=== PATIENT | female | born 1985 | race Caucasian/White ===

== ENCOUNTER 2017-09-16 00:39 | Inpatient (IN) ==
[2017-09-16] MEDS ORDERED: Naloxone 0.4 MG/ML INJ IVP PRN (03:56)
[2017-09-16] MEDS ORDERED: Ondansetron 4 MG/2 ML VIAL IVP PRN (03:57)
--- NOTE | 2017-09-16 04:02 | Internal Med History&Physical ---
Date of Encounter: 09/16/17 Time of Encounter: 04:00 Internal Medicine - H&P: HPI Chief complaint: Abdominal pain Admitted From: Direct Admit Plans for Post Hospital Care: Home History of present illness: Ms. Garcia is a 32 year old female transferred from [facility] with abdominal pain and found to have elevated LFTs. Pain has been generalized but greater in the RUQ and progressed for a week. Reports occasional nausea and vomiting. Some chills but no measured fever. Pain is worse with eating. She has not had much PO intake for a couple days trying to avoid the pain and today her mother made dinner and she had mashed potatoes and started having pain right away and went to the ED at [facility] and then sent here. When I evaluated the patient, she was actually pain free and was nontender one examination. Denies headache, blurry vision, chest pain, shortness of breath, diarrhea, constipation, urinary symptoms, or neurological symptoms. Labs at [facility] showed WBC 8.3, hgb 14.8, Plt 343, Na 134, K 3.3, BUN 5, Cr .75 , Alk phos 272, AST 191, ALT 46, total bili 9.4, CRP 4.4, normal lactic acid, normal lipase. UA was cloudy urine with large bilirubin and large euk esterase. CT abdomen pelvis showed multiple gallstones but no distention, wall thickening, or pericholecystic fluid/inflammation to suggest acute cholecystitis. Proximal CBD dilated up to 1.6 cm. A calcified stone could not be clearly identified within the CBD. Past Med Surg Social Fam HX - Past Medical History Psychiatric history: no psych history - Social History Smoking Status: Never smoker Smokeless Tobacco Status: No Alcohol use: none Drug use: none Internal Medicine - H&P: Meds 3 Allergy/AdvReac Type Severity Reaction Status Date / Time No Known Allergies Allergy Verified 09/16/17 03:35 All Systems PM: A 10-system review of systems was performed and is negative for pertinent findings except as documented above in the HPI. Review of systems: All systems reviewed are negative except for as mentioned above - Constitutional Exam: GEN: NAD HEENT: AT, NC, No cyanosis, oral mucosa is moist, No JVD Lymphatics: No lymphadenoapthy Eyes: Extrocular muscles intact, anicteric CVS:RRR. S1, S2, No m/r/g RESP: CTAB ABD: Soft, NT, obese,. ND, +BS EXT: No edema, No rashes, 2+ DP NEURO: Nonfocal, CN II-XII intact, No focal motor or sensory deficits Psych: Cooperative, Not anxious or depressed - Assessment and plan (1) Abdominal pain Current Visit: Yes Status: Acute Assessment and plan: Likely from choledocholithiasis vs gallstone cholecystitis. We will admit the patient in consult surgery. There is a mention of possible CBD dilation. We will check an MRCP. Patient may need GI consult for ERCP. We will put the patient on Zosyn empirically. Continue pain control. Seems to be controlled with NSAIDs or tylenol. Continue IV fluids. Antiemetics. Nothing by mouth. Qualifiers: Abdominal location: right upper quadrant Qualified Code(s): R10.11 - Right upper quadrant pain (2) Transaminitis Current Visit: Yes Status: Acute Assessment and plan: Plan as above. (3) DVT prophylaxis Current Visit: Yes Status: Acute Assessment and plan: Heparin subcutaneous - Time Spent With Patient Total time spent is greater than 50% in coordination of care (as documented) at patient's floor/unit and/or counseling patient:
[2017-09-16 05:09] LABS: Basophils % 0.2 %; Eosinophils % 0.1 %; Hematocrit 40.5 % (35.3-44.9); Hemoglobin 13.9 g/dL (11.5-15.4); Immature Granulocytes % 0.3 % (0-4); Lymphocytes # 1.2 K/mcL (0.6-4.6); Lymphocytes % 11.7 %; Mean Corpuscular HGB Conc 34.3 g/dL (31.6-35.5); Mean Corpuscular Hemoglobin 29.2 pg (28.0-33.3); Mean Corpuscular Volume 85.1 fL (83.0-100.0); Mean Platelet Volume 9.2 fL (9.4-12.4); Monocytes # 0.5 K/mcL (0.0-1.3); Monocytes % 5.5 %; Neutrophils # 8.1 K/mcL (1.6-8.9); Platelet Count 309 K/mcL (140-400); Red Blood Count 4.76 M/mcL (3.82-4.97); Red Cell Distribution Width 14.9 % (11.5-14.5); Segmented Neutrophils % 82.2 %
[2017-09-16 05:14] LABS: INR 1.2; Prothrombin Time 13.2 Seconds (9.4-12.1)
[2017-09-16 05:31] LABS: Alanine Aminotransferase 413 Units/L (7-52); Albumin 3.7 g/dL (3.5-5.7); Albumin/Globulin Ratio 0.9 (1.1-2.2); Alkaline Phosphatase 287 Units/L (34-104); Aspartate Amino Transferase 149 Units/L (13-39); BUN/Creatinine Ratio 9 (6-26); Bilirubin,Total 8.5 mg/dL (0.3-1.0); Blood Urea Nitrogen 6 mg/dL (6-20); Calcium 9.4 mg/dL (8.6-10.3); Carbon Dioxide 20 mEq/L (23-29); Chloride 103 mEq/L (98-107); Globulin 4.1 g/dL (2.4-3.5); Glucose 114 mg/dL (70-105); Osmolality,Calculated 278 (280-300); Potassium 3.7 mEq/L (3.5-5.1); Sodium 135 mEq/L (136-145); Total Protein 7.8 g/dL (6.4-8.9); eGFR For African Americans > 60 (> 60); eGFR For Non-African Americans > 60 (> 60)
[2017-09-16] MEDS: 0.9 % Sodium Chloride 1,000 ML IVC SCH ×2 (05:46→17:53)
[2017-09-16] MEDS: *HR* Heparin 5,000 UNIT/ML VIAL SQ SCH ×3 (07:02→21:09)
[2017-09-16] MEDS: Piperacillin/Tazobactam 3.375 GM in 0.9 % Sodium Chloride Mini Bag 100 ML IVPB SCH ×2 (10:40→17:53)
--- NOTE | 2017-09-16 10:43 | General Surgery Consult Note ---
<Nick Goodwin - Last Filed: 09/16/17 13:04> Date of Encounter: 09/16/17 Time of Encounter: 08:30 Assessment and Plan (1) Cholelithiases Current Visit: Yes Status: Acute Pt with obstructing gallstone in CBD. MRCP showed: "1. Cholelithiasis 2. Choledocholithiasis identified with at least a 5 mm stone within a notably dilated cystic duct. Cystic duct appears to have a low insertion upon the extrahepatic duct, and there is a 10 mm stone just distal to where the cystic duct joins to form the common bile duct. 3. Pancreatic duct does not appear dilated, and there is no obvious signal abnormality in that area. 4. Intrahepatic biliary tree also appears dilated." Recommend GI consult for ERCP for removal of stone. After removal of stone from CBD will offer patient prophylactic cholecystectomy In the mean time continue Abx per primary team continue pain control continue IV fluids continue NPO continue antiemetics. Qualifiers: Cholelithiasis location: gallbladder and bile duct Cholecystitis presence: without cholecystitis Biliary obstruction: with biliary obstruction Qualified Code(s): K80.71 - Calculus of gallbladder and bile duct without cholecystitis with obstruction (2) Abdominal pain Current Visit: Yes Status: Acute well controlled. see plan above. Qualifiers: Abdominal location: right upper quadrant Qualified Code(s): R10.11 - Right upper quadrant pain (3) Transaminitis Current Visit: Yes Status: Acute t. Bili 8.5 AST 149 ALT 413 Alk phos 287 all secondary to obstructing Cholelithiasis. See plan above. History of Present Illness Consult date: 09/16/17 Reason for consult: gallstones Requesting physician: Lisa Izquierdo History of present illness: 32 yo F c PMhx of GERD arrives to [facility] as a transfer from [facility] for complaints of RUQ abd pain x 1 week, and elevated LFTs. Patient reports Pain progressively worsened over the last week. Patient has had reduced PO intake over this time with intermitten Nausea and Vomiting. Patient ate some dinner last night which acutely worsened the pain and prompted her trip to the ED. At the OSH ED patient was foudn to have a WBC 8.3, hgb 14.8 Plt 343, NA 134, K 3.3 BUN 5 Cr 0.75, Alk Phos 272, AST 191, ALT 46, total Bili 9.4, Normal Lactic acid, normal lipase. CT abd pelvis showed multiple gallstones but no distention , wall thickening, or pericholecystic fluid/inflammation to suggest acute cholecystitis. However the CBD was dilated up to 1.6cm. Patient was transferred to [facility] for surgical evaluation. Patient's lab work here are notable for WBC 9.8, total bili 8.5, AST 149, ALT 413, Alk phos 287. Patient had MRCP this morning which showed: "1. Cholelithiasis 2. Choledocholithiasis identified with at least a 5 mm stone within a notably dilated cystic duct. Cystic duct appears to have a low insertion upon the extrahepatic duct, and there is a 10 mm stone just distal to where the cystic duct joins to form the common bile duct. 3. Pancreatic duct does not appear dilated, and there is no obvious signal abnormality in that area. 4. Intrahepatic biliary tree also appears dilated." Patient denies current pain, N, V, D, Fever, chills, chest pain, SOB. Past Med Surg Social Fam HX - Past Medical History Psychiatric history: no psych history - Social History Smoking Status: Never smoker Smokeless Tobacco Status: No Alcohol use: none Drug use: none Medications and Allergies Gabapentin [Neurontin] 600 mg PO BID 09/16/17 [History] Norethindrone-Ethinyl Estrad [Nortrel 7-7-7-28 Tablet] 1 tab PO DAILY 09/16/17 [ History] Ranitidine HCl [Zantac] 300 mg PO BID 09/16/17 [History] 3 Allergy/AdvReac Type Severity Reaction Status Date / Time latex Allergy Mild Redness of Verified 09/16/17 10:31 Skin Review of Systems All systems PM: The remainder of the systems were reviewed and are negative General Surgery Exam Initial Vital Signs Temp Pulse Resp BP Pulse Ox 98.0 F 108 18 152/97 98 09/16/17 04:58 09/16/17 04:58 09/16/17 04:58 09/16/17 04:58 09/16/17 04:58 - General physical appearance well developed, well nourished, no distress, no pain - Eyes normal ocular movement - ENT normal mucosa - Neck trachea midline - Respiratory normal expansion, normal respiratory effort, clear to auscultation - Cardiovascular Cardiovascular exam: Present: RRR, no murmurs/rubs/gallops - Abdomen Abdomen general surgery: Present: bowel sounds present, soft, non tender - Integumentary Integumentary general surgery: Present: warm and dry - Neurologic Present: CN 2-12 grossly intact - Musculoskeletal Present: normal posture - Psychiatric Psychiatric general surgery: Present: A&Ox3, appropriate, speech is normal, memory intact Exam Initial Vital Signs Temp Pulse Resp BP Pulse Ox 98.0 F 108 18 152/97 98 09/16/17 04:58 09/16/17 04:58 09/16/17 04:58 09/16/17 04:58 09/16/17 04:58 Results - Labs 09/16/17 04:56 09/16/17 04:56 Abnormal lab results RDW 14.9 % (11.5-14.5) H 09/16/17 04:56 MPV 9.2 fL (9.4-12.4) L 09/16/17 04:56 PT 13.2 Seconds (9.4-12.1) H 09/16/17 04:50 Sodium 135 mEq/L (136-145) L 09/16/17 04:56 Carbon Dioxide 20 mEq/L (23-29) L 09/16/17 04:56 Glucose 114 mg/dL (70-105) H 09/16/17 04:56 Calculated Osmolality 278 (280-300) L 09/16/17 04:56 Total Bilirubin 8.5 mg/dL (0.3-1.0) H 09/16/17 04:56 AST 149 Units/L (13-39) H 09/16/17 04:56 ALT 413 Units/L (7-52) H 09/16/17 04:56 Alkaline Phosphatase 287 Units/L (34-104) H 09/16/17 04:56 Globulin 4.1 g/dL (2.4-3.5) H 09/16/17 04:56 Albumin/Globulin Ratio 0.9 (1.1-2.2) L 09/16/17 04:56 Diabetes panel 09/16/17 Range/Units 04:56 Sodium 135 L (136-145) mEq/L Potassium 3.7 (3.5-5.1) mEq/L Chloride 103 (98-107) mEq/L Carbon Dioxide 20 L (23-29) mEq/L BUN 6 (6-20) mg/dL Creatinine 0.64 (0.60-1.20) mg/dL Glucose 114 H (70-105) mg/dL Calcium 9.4 (8.6-10.3) mg/dL AST 149 H (13-39) Units/L ALT 413 H (7-52) Units/L Alkaline Phosphatase 287 H (34-104) Units/L Albumin 3.7 (3.5-5.7) g/dL Calcium panel 09/16/17 Range/Units 04:56 Calcium 9.4 (8.6-10.3) mg/dL Albumin 3.7 (3.5-5.7) g/dL Pituitary panel 09/16/17 Range/Units 04:56 Sodium 135 L (136-145) mEq/L Potassium 3.7 (3.5-5.1) mEq/L Chloride 103 (98-107) mEq/L Carbon Dioxide 20 L (23-29) mEq/L BUN 6 (6-20) mg/dL Creatinine 0.64 (0.60-1.20) mg/dL Glucose 114 H (70-105) mg/dL Calcium 9.4 (8.6-10.3) mg/dL Adrenal panel 09/16/17 Range/Units 04:56 Sodium 135 L (136-145) mEq/L Potassium 3.7 (3.5-5.1) mEq/L Chloride 103 (98-107) mEq/L Carbon Dioxide 20 L (23-29) mEq/L BUN 6 (6-20) mg/dL Creatinine 0.64 (0.60-1.20) mg/dL Glucose 114 H (70-105) mg/dL Calcium 9.4 (8.6-10.3) mg/dL Total Bilirubin 8.5 H (0.3-1.0) mg/dL AST 149 H (13-39) Units/L ALT 413 H (7-52) Units/L Alkaline Phosphatase 287 H (34-104) Units/L Albumin 3.7 (3.5-5.7) g/dL All other labs normal. Consult Discharge Plan - Plan Referrals: Cirilo Beavers DO [Primary Care Provider] - <Donna,Enmanuel T - Last Filed: 09/17/17 11:21> Date of Encounter: 09/17/17 Review of Systems All systems PM: The remainder of the systems were reviewed and are negative General Surgery Exam Initial Vital Signs Temp Pulse Resp BP Pulse Ox 98.0 F 108 18 152/97 98 09/16/17 04:58 09/16/17 04:58 09/16/17 04:58 09/16/17 04:58 09/16/17 04:58 Exam Initial Vital Signs Temp Pulse Resp BP Pulse Ox 98.0 F 108 18 152/97 98 09/16/17 04:58 09/16/17 04:58 09/16/17 04:58 09/16/17 04:58 09/16/17 04:58 Results - Labs 09/17/17 08:54 09/17/17 08:54 Abnormal lab results RDW 15.1 % (11.5-14.5) H 09/17/17 08:54 MPV 9.3 fL (9.4-12.4) L 09/17/17 08:54 PT 13.2 Seconds (9.4-12.1) H 09/16/17 04:50 Sodium 135 mEq/L (136-145) L 09/17/17 08:54 Carbon Dioxide 22 mEq/L (23-29) L 09/17/17 08:54 BUN 4 mg/dL (6-20) L 09/17/17 08:54 Creatinine 0.57 mg/dL (0.60-1.20) L 09/17/17 08:54 Glucose 114 mg/dL (70-105) H 09/17/17 08:54 Calculated Osmolality 278 (280-300) L 09/17/17 08:54 Total Bilirubin 8.5 mg/dL (0.3-1.0) H 09/16/17 04:56 AST 149 Units/L (13-39) H 09/16/17 04:56 ALT 413 Units/L (7-52) H 09/16/17 04:56 Alkaline Phosphatase 287 Units/L (34-104) H 09/16/17 04:56 Globulin 4.1 g/dL (2.4-3.5) H 09/16/17 04:56 Albumin/Globulin Ratio 0.9 (1.1-2.2) L 09/16/17 04:56 Diabetes panel 09/17/17 Range/Units 08:54 Sodium 135 L (136-145) mEq/L Potassium 3.7 (3.5-5.1) mEq/L Chloride 105 (98-107) mEq/L Carbon Dioxide 22 L (23-29) mEq/L BUN 4 L (6-20) mg/dL Creatinine 0.57 L (0.60-1.20) mg/dL Glucose 114 H (70-105) mg/dL Calcium 8.8 (8.6-10.3) mg/dL Calcium panel 09/17/17 Range/Units 08:54 Calcium 8.8 (8.6-10.3) mg/dL Pituitary panel 09/17/17 Range/Units 08:54 Sodium 135 L (136-145) mEq/L Potassium 3.7 (3.5-5.1) mEq/L Chloride 105 (98-107) mEq/L Carbon Dioxide 22 L (23-29) mEq/L BUN 4 L (6-20) mg/dL Creatinine 0.57 L (0.60-1.20) mg/dL Glucose 114 H (70-105) mg/dL Calcium 8.8 (8.6-10.3) mg/dL Adrenal panel 09/17/17 Range/Units 08:54 Sodium 135 L (136-145) mEq/L Potassium 3.7 (3.5-5.1) mEq/L Chloride 105 (98-107) mEq/L Carbon Dioxide 22 L (23-29) mEq/L BUN 4 L (6-20) mg/dL Creatinine 0.57 L (0.60-1.20) mg/dL Glucose 114 H (70-105) mg/dL Calcium 8.8 (8.6-10.3) mg/dL All other labs normal. - Attending Attestation I examined this patient and my medical decision-making was reviewed with the Resident Physician. I agree with the documented findings, disposition and treatment plan as described except to the extent set forth below. The patient is seen and evaluated with resident. The patient will undergo MRCP later today. She has cholelithiasis with what appears to be an impacted common bile duct stone with very high bilirubin greater than 8. She will require preoperative ERCP. We will plan on convalescent cholecystectomy, likely on Monday, prior to discharge. Enmanuel Thompson MD FACS
--- NOTE | 2017-09-16 15:57 | Event Note ---
Date of Encounter: 09/16/17 Time of Encounter: 11:00 Patient evaluated earlier this morning by nocturnalist and also by myself Patient is a 32-year-old female who presented with abdominal pain. 1. Choledocholithiasis MRCP showed choledocholithiasis identified with at least a 5 mm stone within a notably dilated cystic duct. Cystic duct appears to have a low insertion upon the extrahepatic duct, and there is a 10 mm stone just distal to where the cystic duct joins to form the common bile duct. Continue IV Zosyn and nothing by mouth with IV fluids In her surgery following with recommendations for GI consult for ERCP 2. Cholelithiasis Cholelithiasis identified on MRCP General surgery with recommendation for a potential prophylactic cholecystectomy after ERCP Will continue IV Zosyn and by mouth and IV fluids
[2017-09-16] MEDS ORDERED: Dextrose Gel 15 GM/37.5 ML TUBE PO PRN (23:45)
[2017-09-17] MEDS: Piperacillin/Tazobactam 3.375 GM in 0.9 % Sodium Chloride Mini Bag 100 ML IVPB SCH ×4 (00:02→23:28)
[2017-09-17] MEDS: Acetaminophen 325 MG TABLET PO PRN ×2 (02:30→10:08)
[2017-09-17] MEDS: 0.9 % Sodium Chloride 1,000 ML IVC SCH (03:49)
[2017-09-17] MEDS: *HR* Heparin 5,000 UNIT/ML VIAL SQ SCH ×3 (05:27→19:32)
[2017-09-17] MEDS: D5% in 0.45% NACL 1,000 ML IVC SCH ×2 (05:50→16:36)
[2017-09-17 09:03] LABS: Basophils % 0.3 %; Eosinophils % 0.6 %; Hematocrit 36.9 % (35.3-44.9); Hemoglobin 12.8 g/dL (11.5-15.4); Immature Granulocytes % 0.3 % (0-4); Immature Platelets 1.2 % (1.1-6.1); Lymphocytes # 1.6 K/mcL (0.6-4.6); Lymphocytes % 24.5 %; Mean Corpuscular HGB Conc 34.7 g/dL (31.6-35.5); Mean Corpuscular Hemoglobin 29.4 pg (28.0-33.3); Mean Corpuscular Volume 84.8 fL (83.0-100.0); Mean Platelet Volume 9.3 fL (9.4-12.4); Monocytes # 0.5 K/mcL (0.0-1.3); Monocytes % 7.7 %; Neutrophils # 4.3 K/mcL (1.6-8.9); Platelet Count 292 K/mcL (140-400); Red Blood Count 4.35 M/mcL (3.82-4.97); Red Cell Distribution Width 15.1 % (11.5-14.5); Segmented Neutrophils % 66.6 %
[2017-09-17 09:28] LABS: BUN/Creatinine Ratio 7 (6-26); Blood Urea Nitrogen 4 mg/dL (6-20); Calcium 8.8 mg/dL (8.6-10.3); Carbon Dioxide 22 mEq/L (23-29); Chloride 105 mEq/L (98-107); Glucose 114 mg/dL (70-105); Osmolality,Calculated 278 (280-300); Potassium 3.7 mEq/L (3.5-5.1); Sodium 135 mEq/L (136-145); eGFR For African Americans > 60 (> 60); eGFR For Non-African Americans > 60 (> 60)
--- NOTE | 2017-09-17 09:55 | General Surgery Progress Note ---
<Nick Goodwin - Last Filed: 09/17/17 10:42> Date of Encounter: 09/17/17 Time of Encounter: 07:30 - Assessment and Plan (1) Cholelithiases Current Visit: Yes Status: Acute Pt with obstructing gallstone in CBD. MRCP showed: "1. Cholelithiasis 2. Choledocholithiasis identified with at least a 5 mm stone within a notably dilated cystic duct. Cystic duct appears to have a low insertion upon the extrahepatic duct, and there is a 10 mm stone just distal to where the cystic duct joins to form the common bile duct. 3. Pancreatic duct does not appear dilated, and there is no obvious signal abnormality in that area. 4. Intrahepatic biliary tree also appears dilated." GI consulted for ERCP for removal of stone. Likely tomorrow After removal of stone from CBD will offer patient prophylactic cholecystectomy likely Monday. In the mean time continue Abx per primary team continue pain control continue IV fluids clear liquid diet today NPO at midnight. continue antiemetics. Qualifiers: Cholelithiasis location: gallbladder and bile duct Cholecystitis presence: without cholecystitis Biliary obstruction: with biliary obstruction Qualified Code(s): K80.71 - Calculus of gallbladder and bile duct without cholecystitis with obstruction (2) Abdominal pain Current Visit: Yes Status: Acute well controlled. see plan above. Qualifiers: Abdominal location: right upper quadrant Qualified Code(s): R10.11 - Right upper quadrant pain (3) Transaminitis Current Visit: Yes Status: Acute on admission: t. Bili 8.5 AST 149 ALT 413 Alk phos 287 all secondary to obstructing Cholelithiasis. See plan above. Subjective Patient reports: no new complaints, voiding w/o difficulty, flatus, bowel movement, afebrile Narrative: Patient reports some pain, but well controlled. Patient denies other complaints at this time. Objective Vital Signs - Last 8 Hours Temp Pulse Resp BP Pulse Ox 09/17/17 06:51 98.3 F 98 15 159/88 97 09/17/17 03:58 98.5 F 98 16 144/86 96 Intake and Output 09/16/17 09/17/17 09/17/17 23:59 07:59 15:59 Intake Total 100 / 100 1350 / 1350 Output Total 650 / 650 950 / 950 Balance -550 / -550 400 / 400 Intake: IV Fluids 100 / 100 1300 / 1300 0.9 % Sodium Chloride 1,000 ML 1200 / 1200 @ 100 mls/hr IVC .Q10H HECTOR Rx#: [id number] Zosyn 3.375 GM In 0.9 % Sodium 100 / 100 100 / 100 Chloride (Mini-Bag +) 100 ML @ 25 mls/hr IVPB Q8HR HECTOR Rx#: [id number] Oral 0 / 0 50 / 50 Output: Urine 650 / 650 950 / 950 Other: Weight 126.68 kg Blood Glucose* 71 81 Patient Weight 09/17/17 23:59 Weight 126.68 kg - General physical appearance well developed, well nourished, no distress - Eyes normal ocular movement - ENT normal nares, atraumatic, normocephalic - Respiratory normal expansion, normal respiratory effort, clear to auscultation - Cardiovascular Cardiovascular exam: Present: RRR, no murmurs/rubs/gallops - Abdomen Abdomen: Present: bowel sounds present, soft, non tender - Integumentary no abnormal pigmentation - Neurologic CN 2-12 grossly intact - Musculoskeletal normal posture - Psychiatric oriented to time, oriented to person, oriented to place, speech is normal, memory intact - Labs 09/17/17 08:54 09/17/17 08:54 Diabetes panel 09/17/17 Range/Units 08:54 Sodium 135 L (136-145) mEq/L Potassium 3.7 (3.5-5.1) mEq/L Chloride 105 (98-107) mEq/L Carbon Dioxide 22 L (23-29) mEq/L BUN 4 L (6-20) mg/dL Creatinine 0.57 L (0.60-1.20) mg/dL Glucose 114 H (70-105) mg/dL Calcium 8.8 (8.6-10.3) mg/dL Calcium panel 09/17/17 Range/Units 08:54 Calcium 8.8 (8.6-10.3) mg/dL Pituitary panel 09/17/17 Range/Units 08:54 Sodium 135 L (136-145) mEq/L Potassium 3.7 (3.5-5.1) mEq/L Chloride 105 (98-107) mEq/L Carbon Dioxide 22 L (23-29) mEq/L BUN 4 L (6-20) mg/dL Creatinine 0.57 L (0.60-1.20) mg/dL Glucose 114 H (70-105) mg/dL Calcium 8.8 (8.6-10.3) mg/dL Adrenal panel 09/17/17 Range/Units 08:54 Sodium 135 L (136-145) mEq/L Potassium 3.7 (3.5-5.1) mEq/L Chloride 105 (98-107) mEq/L Carbon Dioxide 22 L (23-29) mEq/L BUN 4 L (6-20) mg/dL Creatinine 0.57 L (0.60-1.20) mg/dL Glucose 114 H (70-105) mg/dL Calcium 8.8 (8.6-10.3) mg/dL Consult Discharge Plan - Plan Referrals: Cirilo Beavers DO [Primary Care Provider] - <Enmanuel Thompson - Last Filed: 09/18/17 14:53> Date of Encounter: 09/17/17 Objective Vital Signs - Last 8 Hours Temp Pulse Resp BP Pulse Ox 09/18/17 14:05 97.9 F 92 18 134/84 97 09/18/17 11:43 98.0 F 88 18 131/81 97 Intake and Output 09/17/17 09/18/17 09/18/17 23:59 07:59 15:59 Intake Total 1400 / 1400 1100 / 1100 100 / 100 Output Total 0 / 0 900 / 900 500 / 500 Balance 1400 / 1400 200 / 200 -400 / -400 Intake: IV Fluids 1100 / 1100 1100 / 1100 100 / 100 D5% And 0.45% Nacl 1000 Ml Bag 1000 / 1000 1000 / 1000 1,000 ML @ 100 mls/hr IVC .Q10H HECTOR Rx#:[id number] Zosyn 3.375 GM In 0.9 % Sodium 100 / 100 100 / 100 100 / 100 Chloride (Mini-Bag +) 100 ML @ 25 mls/hr IVPB Q8HR HECTOR Rx#: [id number] Oral 300 / 300 0 / 0 0 / 0 Output: Urine 0 / 0 900 / 900 500 / 500 Other: Meal Dinner NPO npo Percent of Meal Consumed 0% 0% Stool Size Moderate Stool Consistency formed Stool Characteristics Normal for Patient Stool Color Brown # Bowel Movements 0 0 1 Weight 126.8 kg Blood Glucose* 108 100 Patient Weight 09/18/17 23:59 Weight 126.8 kg - Labs 09/18/17 05:01 09/18/17 05:01 Diabetes panel 09/18/17 Range/Units 05:01 Sodium 136 (136-145) mEq/L Potassium 3.4 L (3.5-5.1) mEq/L Chloride 104 (98-107) mEq/L Carbon Dioxide 24 (23-29) mEq/L BUN 3 L (6-20) mg/dL Creatinine 0.67 (0.60-1.20) mg/dL Glucose 116 H (70-105) mg/dL Calcium 9.0 (8.6-10.3) mg/dL AST 46 H (13-39) Units/L ALT 169 H (7-52) Units/L Alkaline Phosphatase 242 H (34-104) Units/L Albumin 3.3 L (3.5-5.7) g/dL Calcium panel 09/18/17 Range/Units 05:01 Calcium 9.0 (8.6-10.3) mg/dL Albumin 3.3 L (3.5-5.7) g/dL Pituitary panel 09/18/17 Range/Units 05:01 Sodium 136 (136-145) mEq/L Potassium 3.4 L (3.5-5.1) mEq/L Chloride 104 (98-107) mEq/L Carbon Dioxide 24 (23-29) mEq/L BUN 3 L (6-20) mg/dL Creatinine 0.67 (0.60-1.20) mg/dL Glucose 116 H (70-105) mg/dL Calcium 9.0 (8.6-10.3) mg/dL Adrenal panel 09/18/17 Range/Units 05:01 Sodium 136 (136-145) mEq/L Potassium 3.4 L (3.5-5.1) mEq/L Chloride 104 (98-107) mEq/L Carbon Dioxide 24 (23-29) mEq/L BUN 3 L (6-20) mg/dL Creatinine 0.67 (0.60-1.20) mg/dL Glucose 116 H (70-105) mg/dL Calcium 9.0 (8.6-10.3) mg/dL Total Bilirubin 9.2 H (0.3-1.0) mg/dL AST 46 H (13-39) Units/L ALT 169 H (7-52) Units/L Alkaline Phosphatase 242 H (34-104) Units/L Albumin 3.3 L (3.5-5.7) g/dL - Attending Attestation I examined this patient and my medical decision-making was reviewed with the Resident Physician. I agree with the documented findings, disposition and treatment plan as described except to the extent set forth below. The patient is seen and evaluated on morning rounds with resident. She appears to have an obstructed distal common bile duct stone. I recommend gastroenterology consultation with ERCP to clear the common bile duct. If we are able to do so, we will plan laparoscopic cholecystectomy the following day. Enmanuel Thompson MD FACS
--- NOTE | 2017-09-17 16:45 | Internal Med Progress Note ---
Date of Encounter: 09/17/17 Time of Encounter: 11:00 - Assessment and plan (1) Choledocholithiasis Current Visit: Yes Status: Acute Assessment and plan: MRCP showed choledocholithiasis identified with at least a 5 mm stone within a notably dilated cystic duct. Cystic duct appears to have a low insertion upon the extrahepatic duct, and there is a 10 mm stone just distal to where the cystic duct joins to form the common bile duct. Continue IV Zosyn and nothing by mouth with IV fluids GI consult for ERCP (2) Cholelithiases Current Visit: Yes Status: Acute Assessment and plan: Cholelithiasis identified on MRCP General surgery with recommendation for a potential prophylactic cholecystectomy after ERCP Will continue IV Zosyn and by mouth and IV fluids Qualifiers: Cholelithiasis location: gallbladder and bile duct Cholecystitis presence: without cholecystitis Biliary obstruction: with biliary obstruction Qualified Code(s): K80.71 - Calculus of gallbladder and bile duct without cholecystitis with obstruction (3) Transaminitis Current Visit: Yes Status: Acute Assessment and plan: Secondary to the above Continue to monitor (4) Abdominal pain Current Visit: Yes Status: Acute Assessment and plan: Secondary to and management as above Continue pain control. Qualifiers: Abdominal location: right upper quadrant Qualified Code(s): R10.11 - Right upper quadrant pain (5) DVT prophylaxis Current Visit: Yes Status: Acute Assessment and plan: Heparin subcutaneous - Time Spent With Patient Total time spent is greater than 50% in coordination of care (as documented) at patient's floor/unit and/or counseling patient: - Subjective Interval history: Patient with improvement in abdominal discomfort this morning is able to tolerate clear diet She will be made nothing by mouth overnight with plans for ERCP on 09/18/17 for choledocholithiasis - Constitutional Vitals: Temp Pulse Resp BP Pulse Ox 98 F 99 14 156/91 97 09/17/17 15:50 09/17/17 15:50 09/17/17 15:50 09/17/17 15:50 09/17/17 15:50 General appearance: Present: no acute distress - Respiratory Respiratory exam: Present: CTAB. Absent: accessory muscle use, rales, rhonchi, wheezes - Cardiovascular Cardiovascular exam: Present: RRR, +S1, +S2. Absent: diastolic murmur, gallop, rubs, systolic murmur - GI/Abdominal GI/Abdominal exam: Present: normal bowel sounds, soft, tenderness (Mild right upper quadrant tenderness to palpation), no peritoneal signs. Absent: distended Internal Medicine: Result - Labs CBC & Chem 7: 09/17/17 08:54 09/17/17 08:54 Labs: Short CBC 09/17/17 Range/Units 08:54 WBC 6.5 (4.3-11.1) K/mcL Hgb 12.8 (11.5-15.4) g/dL Hct 36.9 (35.3-44.9) % Plt Count 292 (140-400) K/mcL Neutrophils # 4.3 (1.6-8.9) K/mcL BMP 09/17/17 08:54 Sodium 135 L Potassium 3.7 Chloride 105 Carbon Dioxide 22 L BUN 4 L Creatinine 0.57 L Glucose 114 H Calcium 8.8 - ABG Interpretation ABG results: PT/INR, D-dimer PT 13.2 Seconds (9.4-12.1) H 09/16/17 04:50 Consult Discharge Plan - Plan Referrals: Cirilo Beavers DO [Primary Care Provider] -
[2017-09-18] MEDS: D5% in 0.45% NACL 1,000 ML IVC SCH ×2 (03:33→14:55)
[2017-09-18] MEDS: *HR* Heparin 5,000 UNIT/ML VIAL SQ SCH ×3 (04:06→22:51)
[2017-09-18 05:26] LABS: Basophils % 0.3 %; Eosinophils # 0.1 K/mcL (0.0-0.6); Hematocrit 37.5 % (35.3-44.9); Hemoglobin 12.8 g/dL (11.5-15.4); Immature Granulocytes % 0.3 % (0-4); Lymphocytes # 1.8 K/mcL (0.6-4.6); Mean Corpuscular HGB Conc 34.1 g/dL (31.6-35.5); Mean Platelet Volume 9.3 fL (9.4-12.4); Monocytes # 0.5 K/mcL (0.0-1.3); Monocytes % 8.8 %; Neutrophils # 3.4 K/mcL (1.6-8.9); Platelet Count 285 K/mcL (140-400); Red Blood Count 4.41 M/mcL (3.82-4.97); Red Cell Distribution Width 15.3 % (11.5-14.5); Segmented Neutrophils % 58.6 %
[2017-09-18 05:51] LABS: Alanine Aminotransferase 169 Units/L (7-52); Albumin 3.3 g/dL (3.5-5.7); Albumin/Globulin Ratio 0.9 (1.1-2.2); Alkaline Phosphatase 242 Units/L (34-104); Aspartate Amino Transferase 46 Units/L (13-39); BUN/Creatinine Ratio 4 (6-26); Bilirubin,Total 9.2 mg/dL (0.3-1.0); Blood Urea Nitrogen 3 mg/dL (6-20); Carbon Dioxide 24 mEq/L (23-29); Chloride 104 mEq/L (98-107); Globulin 3.7 g/dL (2.4-3.5); Glucose 116 mg/dL (70-105); Osmolality,Calculated 280 (280-300); Potassium 3.4 mEq/L (3.5-5.1); Sodium 136 mEq/L (136-145); eGFR For African Americans > 60 (> 60); eGFR For Non-African Americans > 60 (> 60)
[2017-09-18] MEDS: Piperacillin/Tazobactam 3.375 GM in 0.9 % Sodium Chloride Mini Bag 100 ML IVPB SCH ×2 (07:28→15:48)
--- NOTE | 2017-09-18 07:30 | General Surgery Progress Note ---
<Nick Goodwin - Last Filed: 09/18/17 08:45> Date of Encounter: 09/18/17 Time of Encounter: 07:00 - Assessment and Plan (1) Cholelithiases Current Visit: Yes Status: Acute Pt with obstructing gallstone in CBD. MRCP showed: "1. Cholelithiasis 2. Choledocholithiasis identified with at least a 5 mm stone within a notably dilated cystic duct. Cystic duct appears to have a low insertion upon the extrahepatic duct, and there is a 10 mm stone just distal to where the cystic duct joins to form the common bile duct. 3. Pancreatic duct does not appear dilated, and there is no obvious signal abnormality in that area. 4. Intrahepatic biliary tree also appears dilated." GI consulted for ERCP for removal of stone. After removal of stone from CBD will offer patient prophylactic cholecystectomy likely Monday. In the mean time continue Abx per primary team continue pain control continue IV fluids may resume Clear liquid diet after ERCP. NPO at midnight for lap choly if ERCP today. continue antiemetics. Qualifiers: Cholelithiasis location: gallbladder and bile duct Cholecystitis presence: without cholecystitis Biliary obstruction: with biliary obstruction Qualified Code(s): K80.71 - Calculus of gallbladder and bile duct without cholecystitis with obstruction (2) Abdominal pain Current Visit: Yes Status: Acute well controlled. see plan above. Qualifiers: Abdominal location: right upper quadrant Qualified Code(s): R10.11 - Right upper quadrant pain (3) Transaminitis Current Visit: Yes Status: Acute on admission: t. Bili 8.5 AST 149 ALT 413 Alk phos 287 Today: T. Bili 9.2 AST 46 ALT 169 Alk Phos 242 all secondary to obstructing Cholelithiasis. See plan above. Subjective Patient reports: no new complaints, tolerating liquids well, voiding w/o difficulty, afebrile Narrative: Patient is stale. No new complaints. Pain is well controlled. GI consult for today and possible ERCP. Will do cholecystectomy the day after ERCP. Objective Vital Signs - Last 8 Hours Temp Pulse Resp BP Pulse Ox 09/18/17 06:33 98.1 F 93 16 154/95 97 09/18/17 03:23 98.3 F 93 14 138/89 98 Intake and Output 09/17/17 09/17/17 09/18/17 15:59 23:59 07:59 Intake Total 160 / 160 1400 / 1400 1100 / 1100 Output Total 1100 / 1100 0 / 0 800 / 800 Balance -940 / -940 1400 / 1400 300 / 300 Intake: IV Fluids 100 / 100 1100 / 1100 1100 / 1100 D5% And 0.45% Nacl 1000 Ml Bag 1000 / 1000 1000 / 1000 1,000 ML @ 100 mls/hr IVC .Q10H HECTOR Rx#:[id number] Zosyn 3.375 GM In 0.9 % Sodium 100 / 100 100 / 100 100 / 100 Chloride (Mini-Bag +) 100 ML @ 25 mls/hr IVPB Q8HR HECTOR Rx#: [id number] Oral 60 / 60 300 / 300 0 / 0 Output: Urine 1100 / 1100 0 / 0 800 / 800 Other: Meal Clears Dinner NPO Percent of Meal Consumed 0% 0% 0% # Bowel Movements 0 0 Weight 126.8 kg Blood Glucose* 108 Patient Weight 09/18/17 23:59 Weight 126.8 kg - General physical appearance well developed, well nourished, no distress, obese - Eyes normal ocular movement - ENT normal nares, normal mucosa - Neck Neck exam: trachea midline - Respiratory normal expansion, normal respiratory effort, clear to auscultation - Cardiovascular Cardiovascular exam: Present: RRR, no murmurs/rubs/gallops - Abdomen Abdomen: Present: bowel sounds present, soft, non tender - Integumentary other (warm and dry) - Neurologic CN 2-12 grossly intact - Musculoskeletal normal posture - Psychiatric oriented to time, oriented to person, oriented to place, speech is normal, memory intact - Labs 09/18/17 05:01 09/18/17 05:01 Diabetes panel 09/17/17 09/18/17 Range/Units 08:54 05:01 Sodium 135 L 136 (136-145) mEq/L Potassium 3.7 3.4 L (3.5-5.1) mEq/L Chloride 105 104 (98-107) mEq/L Carbon Dioxide 22 L 24 (23-29) mEq/L BUN 4 L 3 L (6-20) mg/dL Creatinine 0.57 L 0.67 (0.60-1.20) mg/dL Glucose 114 H 116 H (70-105) mg/dL Calcium 8.8 9.0 (8.6-10.3) mg/dL AST 46 H (13-39) Units/L ALT 169 H (7-52) Units/L Alkaline Phosphatase 242 H (34-104) Units/L Albumin 3.3 L (3.5-5.7) g/dL Calcium panel 09/17/17 09/18/17 Range/Units 08:54 05:01 Calcium 8.8 9.0 (8.6-10.3) mg/dL Albumin 3.3 L (3.5-5.7) g/dL Pituitary panel 09/17/17 09/18/17 Range/Units 08:54 05:01 Sodium 135 L 136 (136-145) mEq/L Potassium 3.7 3.4 L (3.5-5.1) mEq/L Chloride 105 104 (98-107) mEq/L Carbon Dioxide 22 L 24 (23-29) mEq/L BUN 4 L 3 L (6-20) mg/dL Creatinine 0.57 L 0.67 (0.60-1.20) mg/dL Glucose 114 H 116 H (70-105) mg/dL Calcium 8.8 9.0 (8.6-10.3) mg/dL Adrenal panel 09/17/17 09/18/17 Range/Units 08:54 05:01 Sodium 135 L 136 (136-145) mEq/L Potassium 3.7 3.4 L (3.5-5.1) mEq/L Chloride 105 104 (98-107) mEq/L Carbon Dioxide 22 L 24 (23-29) mEq/L BUN 4 L 3 L (6-20) mg/dL Creatinine 0.57 L 0.67 (0.60-1.20) mg/dL Glucose 114 H 116 H (70-105) mg/dL Calcium 8.8 9.0 (8.6-10.3) mg/dL Total Bilirubin 9.2 H (0.3-1.0) mg/dL AST 46 H (13-39) Units/L ALT 169 H (7-52) Units/L Alkaline Phosphatase 242 H (34-104) Units/L Albumin 3.3 L (3.5-5.7) g/dL Consult Discharge Plan - Plan Referrals: Cirilo Beavers DO [Primary Care Provider] - <Enmanuel Thompson - Last Filed: 09/18/17 16:53> Date of Encounter: 09/18/17 Objective Vital Signs - Last 8 Hours Temp Pulse Resp BP Pulse Ox 09/18/17 14:05 97.9 F 92 18 134/84 97 09/18/17 11:43 98.0 F 88 18 131/81 97 Intake and Output 09/18/17 09/18/17 09/18/17 07:59 15:59 23:59 Intake Total 1100 / 1100 1100 / 1100 Output Total 900 / 900 500 / 500 Balance 200 / 200 600 / 600 Intake: IV Fluids 1100 / 1100 1100 / 1100 D5% And 0.45% Nacl 1000 Ml Bag 1000 / 1000 1000 / 1000 1,000 ML @ 100 mls/hr IVC .Q10H HECTOR Rx#:[id number] Zosyn 3.375 GM In 0.9 % Sodium 100 / 100 100 / 100 Chloride (Mini-Bag +) 100 ML @ 25 mls/hr IVPB Q8HR HECTOR Rx#: [id number] Oral 0 / 0 0 / 0 Output: Urine 900 / 900 500 / 500 Other: Meal NPO npo Percent of Meal Consumed 0% Stool Size Moderate Stool Consistency formed Stool Characteristics Normal for Patient Stool Color Brown # Bowel Movements 0 1 Weight 126.8 kg Blood Glucose* 108 100 Patient Weight 09/18/17 23:59 Weight 126.8 kg - Labs 09/18/17 05:01 09/18/17 05:01 Diabetes panel 09/18/17 Range/Units 05:01 Sodium 136 (136-145) mEq/L Potassium 3.4 L (3.5-5.1) mEq/L Chloride 104 (98-107) mEq/L Carbon Dioxide 24 (23-29) mEq/L BUN 3 L (6-20) mg/dL Creatinine 0.67 (0.60-1.20) mg/dL Glucose 116 H (70-105) mg/dL Calcium 9.0 (8.6-10.3) mg/dL AST 46 H (13-39) Units/L ALT 169 H (7-52) Units/L Alkaline Phosphatase 242 H (34-104) Units/L Albumin 3.3 L (3.5-5.7) g/dL Calcium panel 09/18/17 Range/Units 05:01 Calcium 9.0 (8.6-10.3) mg/dL Albumin 3.3 L (3.5-5.7) g/dL Pituitary panel 09/18/17 Range/Units 05:01 Sodium 136 (136-145) mEq/L Potassium 3.4 L (3.5-5.1) mEq/L Chloride 104 (98-107) mEq/L Carbon Dioxide 24 (23-29) mEq/L BUN 3 L (6-20) mg/dL Creatinine 0.67 (0.60-1.20) mg/dL Glucose 116 H (70-105) mg/dL Calcium 9.0 (8.6-10.3) mg/dL Adrenal panel 09/18/17 Range/Units 05:01 Sodium 136 (136-145) mEq/L Potassium 3.4 L (3.5-5.1) mEq/L Chloride 104 (98-107) mEq/L Carbon Dioxide 24 (23-29) mEq/L BUN 3 L (6-20) mg/dL Creatinine 0.67 (0.60-1.20) mg/dL Glucose 116 H (70-105) mg/dL Calcium 9.0 (8.6-10.3) mg/dL Total Bilirubin 9.2 H (0.3-1.0) mg/dL AST 46 H (13-39) Units/L ALT 169 H (7-52) Units/L Alkaline Phosphatase 242 H (34-104) Units/L Albumin 3.3 L (3.5-5.7) g/dL - Attending Attestation I examined this patient and my medical decision-making was reviewed with the Resident Physician. I agree with the documented findings, disposition and treatment plan as described except to the extent set forth below. The patient is seen and evaluated on morning rounds with resident. She has obstructive jaundice secondary to impacted distal common bile duct stone. Hopefully we will have ERCP later today and laparoscopic cholecystectomy tomorrow.
--- NOTE | 2017-09-18 12:18 | Gastroenterology Consult Note ---
<Noah Paniagua - Last Filed: 09/18/17 12:16> Date of Encounter: 09/18/17 Time of Encounter: 10:50 - Assessment and plan (1) Cholelithiases Current Visit: Yes Status: Acute Assessment and plan: Management per General Surgery. Plan for cholecystectomy after ERCP. Qualifiers: Cholelithiasis location: gallbladder and bile duct Cholecystitis presence: without cholecystitis Biliary obstruction: with biliary obstruction Qualified Code(s): K80.71 - Calculus of gallbladder and bile duct without cholecystitis with obstruction (2) Choledocholithiasis Current Visit: Yes Status: Acute Assessment and plan: MRCP showed lithiasis, choledocholithiasis with at least a 5 mm stone within a notably dilated cystic duct, and a 10 mm stone just distal to where the cystic duct joins to form the CBD, pancreatic duct does not appear dilated, intrahepatic biliary tree also appears dilated. Plan for ERCP either this evening or tomorrow. Keep pt NPO. (3) Transaminitis Current Visit: Yes Status: Acute Assessment and plan: On admission AST 149, ALT 413, Alk phos 287. Today AST 46, ALT 169, Alk phos 242. Continue to monitor. (4) Jaundice Current Visit: Yes Status: Acute Assessment and plan: Secondary to choledocholithiasis. On admission TB 8.5 and today TB 9.2. Plan for ERCP today or tomorrow. - Time Spent With Patient Total time spent is greater than 50% in coordination of care (as documented) at patient's floor/unit and/or counseling patient: GI History of Present Illness - Data of Consult Patient: new to practice Consult date: 09/18/17 Requesting Physician: Edison Rodriguez - Consult Narrative Reason for consult: Choledocholithiasis History of present illness: Ms. Garcia is a 32 year old female with PMHx of GERD was transferred from [facility] with abdominal pain and found to have elevated LFTs. Pain has been generalized but greater in the RUQ and progressively worsened over the last week. Patient has had reduced PO intake over this time with intermittent nausea and vomiting. Patient ate some dinner last night which acutely worsened the pain and prompted her trip to the ED. MRCP showed lithiasis, choledocholithiasis with at least a 5 mm stone within a notably dilated cystic duct, and a 10 mm stone just distal to where the cystic duct joins to form the CBD, pancreatic duct does not appear dilated, intrahepatic biliary tree also appears dilated. We have been consulted for ERCP. Procedures: None NSAIDs: None Anticoagulation: None Past Med Surg Social Fam HX - Past Medical History Psychiatric history: no psych history - Social History Smoking Status: Never smoker Smokeless Tobacco Status: No Alcohol use: none Drug use: none - Gastrointestinal Gastrointestinal: Present: as per HPI - Constitutional Constitutional: as per HPI - EENT Eyes: as per HPI Ears: Present: as per HPI Nose, mouth and throat: Present: as per HPI - Cardiovascular Cardiovascular ROS: Present: as per HPI - Respiratory Respiratory IM: Present: as per HPI - Genitourinary Genitourinary: Absent: change in color, Urinary frequency - Neurological ROS Neurological GI: Present: as per HPI - Hematologic/Lymphatic Hematologic/Lymphatic pediatric: Present: as per HPI - Musculoskeletal Musculoskeletal ROS GI: Present: as per HPI - Integumentary Integumentary GI: Present: as per HPI - Psychiatric ROS Psychiatric GI: Present: as per HPI - Endocrine Endocrine IM: Present: as per HPI - Constitutional Vitals: Temp Pulse Resp BP Pulse Ox 98.0 F 88 18 131/81 97 09/18/17 11:43 09/18/17 11:43 09/18/17 11:43 09/18/17 11:43 09/18/17 11:43 General appearance: Present: cooperative, A&O X 3, no acute distress, answers questions appropriately - Head Head exam: Present: atraumatic, normocephalic - Eye Eye exam: Present: scleral icterus - ENT ENT exam: Present: mucous membranes dry - Neck Neck exam general surgery: Present: normal inspection, trachea midline - Respiratory Respiratory exam: Present: CTAB. Absent: rales, rhonchi - Cardiovascular Cardiovascular exam: Present: RRR, +S1, +S2 - GI/Abdominal GI/Abdominal exam: Present: soft, no peritoneal signs. Absent: distended, firm , guarding, tenderness - Rectal Rectal exam: Present: deferred - Extremities Exam Extremities exam: Present: warm - Neurological Exam Neurological exam: Present: no focal deficits - Psychiatric Psychiatric exam: Present: normal affect, normal mood - Skin Skin exam: Present: dry, intact, warm. Absent: normal color Additional comments: Jaundice Results - Labs CBC & Chem 7: 09/18/17 05:01 09/18/17 05:01 Labs: Last Result Calcium 9.0 mg/dL (8.6-10.3) 09/18/17 05:01 Entire Visit Hgb 12.8 g/dL (11.5-15.4) 09/18/17 05:01 Hct 37.5 % (35.3-44.9) 09/18/17 05:01 PT 13.2 Seconds (9.4-12.1) H 09/16/17 04:50 Total Bilirubin 9.2 mg/dL (0.3-1.0) H 09/18/17 05:01 AST 46 Units/L (13-39) H 09/18/17 05:01 ALT 169 Units/L (7-52) H 09/18/17 05:01 - ABG ABG results: PT/INR, D-dimer PT 13.2 Seconds (9.4-12.1) H 09/16/17 04:50 Consult Discharge Plan - Plan Referrals: Cirilo Beavers DO [Primary Care Provider] - <Roly Lynch - Last Filed: 09/18/17 13:13> Date of Encounter: 09/18/17 - Time Spent With Patient Total time spent is greater than 50% in coordination of care (as documented) at patient's floor/unit and/or counseling patient: GI History of Present Illness - Data of Consult Requesting Physician: Edison Rodriguez - Consult Narrative History of present illness: Ms. Garcia is a 32 year old female - Constitutional Vitals: Temp Pulse Resp BP Pulse Ox 98.0 F 88 18 131/81 97 09/18/17 11:43 09/18/17 11:43 09/18/17 11:43 09/18/17 11:43 09/18/17 11:43 Results - Labs CBC & Chem 7: 09/18/17 05:01 09/18/17 05:01 Labs: Last Result Calcium 9.0 mg/dL (8.6-10.3) 09/18/17 05:01 Entire Visit Hgb 12.8 g/dL (11.5-15.4) 09/18/17 05:01 Hct 37.5 % (35.3-44.9) 09/18/17 05:01 PT 13.2 Seconds (9.4-12.1) H 09/16/17 04:50 Total Bilirubin 9.2 mg/dL (0.3-1.0) H 09/18/17 05:01 AST 46 Units/L (13-39) H 09/18/17 05:01 ALT 169 Units/L (7-52) H 09/18/17 05:01 - ABG ABG results: PT/INR, D-dimer PT 13.2 Seconds (9.4-12.1) H 09/16/17 04:50 - Attending Attestation Patient with abnormal liver enzymes, abdominal pain, no fever or chills and choledocholithiasis confirmed by an MRCP. The common bile duct appears dilated. The pancreatic duct was normal. Agree with proceeding with an ERCP with possible sphincterotomy and stone extraction
--- NOTE | 2017-09-18 16:44 | Internal Med Progress Note ---
Date of Encounter: 09/18/17 Time of Encounter: 11:00 - Assessment and plan (1) Choledocholithiasis Current Visit: Yes Status: Acute Assessment and plan: MRCP showed choledocholithiasis identified with at least a 5 mm stone within a notably dilated cystic duct. Cystic duct appears to have a low insertion upon the extrahepatic duct, and there is a 10 mm stone just distal to where the cystic duct joins to form the common bile duct. Continue IV Zosyn and nothing by mouth with IV fluids GI consult for ERCP (2) Cholelithiases Current Visit: Yes Status: Acute Assessment and plan: Cholelithiasis identified on MRCP General surgery with recommendation for a potential prophylactic cholecystectomy after ERCP Will continue IV Zosyn and by mouth and IV fluids Qualifiers: Cholelithiasis location: gallbladder and bile duct Cholecystitis presence: without cholecystitis Biliary obstruction: with biliary obstruction Qualified Code(s): K80.71 - Calculus of gallbladder and bile duct without cholecystitis with obstruction (3) Transaminitis Current Visit: Yes Status: Acute Assessment and plan: Secondary to the above Continue to monitor (4) Abdominal pain Current Visit: Yes Status: Acute Assessment and plan: Secondary to and management as above Continue pain control. Qualifiers: Abdominal location: right upper quadrant Qualified Code(s): R10.11 - Right upper quadrant pain (5) DVT prophylaxis Current Visit: Yes Status: Acute Assessment and plan: Heparin subcutaneous - Time Spent With Patient Total time spent is greater than 50% in coordination of care (as documented) at patient's floor/unit and/or counseling patient: - Subjective Interval history: Patient who presented with abdominal pain and found to have choledocholithiasis with a 5 mm stone within a notably dilated cystic duct and a 10 mm stone just distal to where the cystic duct joins to form the common bile duct. Plans for ERCP on 09/18/17 for choledocholithiasis followed by prophylactic cholecystectomy by general surgery - Constitutional Vitals: Temp Pulse Resp BP Pulse Ox 97.9 F 92 18 134/84 97 09/18/17 14:05 09/18/17 14:05 09/18/17 14:05 09/18/17 14:05 09/18/17 14:05 General appearance: Present: no acute distress - Respiratory Respiratory exam: Present: CTAB. Absent: accessory muscle use, rales, rhonchi, wheezes - Cardiovascular Cardiovascular exam: Present: RRR, +S1, +S2. Absent: diastolic murmur, gallop, rubs, systolic murmur - GI/Abdominal GI/Abdominal exam: Present: normal bowel sounds, soft, tenderness (Patient with right upper quadrant pain on palpitation), no peritoneal signs. Absent: distended Internal Medicine: Result - Labs CBC & Chem 7: 09/18/17 05:01 09/18/17 05:01 Labs: Short CBC 09/18/17 Range/Units 05:01 WBC 5.8 (4.3-11.1) K/mcL Hgb 12.8 (11.5-15.4) g/dL Hct 37.5 (35.3-44.9) % Plt Count 285 (140-400) K/mcL Neutrophils # 3.4 (1.6-8.9) K/mcL BMP 09/18/17 05:01 Sodium 136 Potassium 3.4 L Chloride 104 Carbon Dioxide 24 BUN 3 L Creatinine 0.67 Glucose 116 H Calcium 9.0 Liver Function 09/18/17 Range/Units 05:01 Total Bilirubin 9.2 H (0.3-1.0) mg/dL AST 46 H (13-39) Units/L ALT 169 H (7-52) Units/L Alkaline Phosphatase 242 H (34-104) Units/L Albumin 3.3 L (3.5-5.7) g/dL - ABG Interpretation ABG results: PT/INR, D-dimer PT 13.2 Seconds (9.4-12.1) H 09/16/17 04:50 Consult Discharge Plan - Plan Referrals: Cirilo Beavers DO [Primary Care Provider] -
--- NOTE | 2017-09-18 18:27 | Anesthesia Evaluation PreOp ---
Date of Encounter: 09/18/17 Time of Encounter: 18:24 - Past History Planned Operation: ERCP Cardiac History: Denies any Significant Hx Pulmonary History: Denies Any Significant HX SHINGLE CUTTER History: Denies Any Significant HX Other Medical History: GERD, Other (obesity BMI=52.8) Anesthesia History: No Prior Anesthetic Complications, Past Anesthesia Test: Negative (09/18/3017) Alcohol Use: none Drug use: none Medications and Allergies Gabapentin [Neurontin] 600 mg PO BID 09/16/17 [History] Norethindrone-Ethinyl Estrad [Nortrel 11-25-12-16 Tablet] 1 tab PO DAILY 09/16/17 [ History] Ranitidine HCl [Zantac] 300 mg PO BID 09/16/17 [History] 3 Allergy/AdvReac Type Severity Reaction Status Date / Time latex Allergy Mild Redness of Verified 09/16/17 10:31 Skin - Meds/Allergy Pre-op Review Medications Reviewed: Yes Allergies Reviewed: Yes Beta Blockers on Current Med List: No Anesthesia Results - Labs 09/18/17 05:01 09/18/17 05:01 Laboratory Tests 09/16/17 04:50 PT 13.2 H INR 1.2 Anesthesia Exam Vital Signs/O2 Sat, Most Current Temp Pulse Resp BP Pulse Ox 97.9 F 108 18 165/98 98 09/18/17 14:05 09/18/17 18:21 09/18/17 18:21 09/18/17 18:21 09/18/17 18:21 Height: 5'1''/1.55m Weight: 279 lbs/126.8 kg NPO (# of Hours): 8 Pain Scale: 0 Pain Scale Used: Numeric (1 - 10) - HEENT Pupil (Motor): EOMI Mallampati: III Teeth: Poor dentition (prominent teeth) Oral Opening: Greater than 3 - SHINGLE CUTTER LOC: Oriented SHINGLE CUTTER Motor: Normal RUE, Normal LUE, Normal RLE, Normal LLE, Normal Face SHINGLE CUTTER Sensory: Normal: RUE, LUE, RLE, LLE, Face - Cardiac Rhythm: Regular Murmur: None - Pulmonary Breath Sounds: bilateral Clear Respiratory Effort: Symmetrical Anesthesia Assess/Plan ASA Score: 3 Modified Silva Scale for Level of Consciousness: Cooperative, oriented, and tranquil Anesthetic Plan: General Monitoring Plan: Standard Monitors Recovery Plan: PACU
[2017-09-18] MEDS ORDERED: *HR* Propofol 200 MG/20 ML VIAL IVP ONE (18:37)
[2017-09-18] MEDS ORDERED: *HR* Midazolam HCl 2 MG/2 ML VIAL ONE (18:37)
[2017-09-18] MEDS ORDERED: Lidocaine -MPF 2% 2 ML VIAL ONE (18:37)
[2017-09-18] MEDS ORDERED: *HR* Succinylcholine 200 MG/10 ML VIAL IVP ONE (18:39)
[2017-09-18] MEDS ORDERED: Ondansetron 4 MG/2 ML VIAL ONE (18:58)
[2017-09-18] MEDS ORDERED: Dexamethasone 4 MG/ML VIAL ONE (18:58)
[2017-09-18] MEDS ORDERED: Indomethacin 50 MG SUPP.RECT RC ONE (19:08)
[2017-09-18] MEDS ORDERED: *HR* Promethazine 25 MG/ML VIAL IVP PRN (19:21)
[2017-09-18] MEDS ORDERED: Ondansetron 4 MG/2 ML VIAL IVP ONE (19:21)
--- NOTE | 2017-09-18 19:29 | Anesthesia Evaluation PreOp ---
Date of Encounter: 09/18/17 Time of Encounter: 19:27 - Past History Planned Operation: Lap. [facility]ell Cardiac History: Denies any Significant Hx Pulmonary History: Denies Any Significant HX SET AND EXHIBIT DESIGNER History: Denies Any Significant HX Other Medical History: GERD Anesthesia History: No Prior Anesthetic Complications, Past Anesthesia (ERCP ) : No Test: Negative (09/18/17) Alcohol Use: none Drug use: none Medications and Allergies Gabapentin [Neurontin] 600 mg PO BID 09/16/17 [History] Norethindrone-Ethinyl Estrad [Nortrel 7--- Tablet] 1 tab PO DAILY 09/16/17 [ History] Ranitidine HCl [Zantac] 300 mg PO BID 09/16/17 [History] 3 Allergy/AdvReac Type Severity Reaction Status Date / Time latex Allergy Mild Redness of Verified 09/16/17 10:31 Skin - Meds/Allergy Pre-op Review Medications Reviewed: Yes Allergies Reviewed: Yes Beta Blockers on Current Med List: No Anesthesia Results - Labs 09/18/17 05:01 09/18/17 05:01 Anesthesia Exam Vital Signs/O2 Sat, Most Current Temp Pulse Resp BP Pulse Ox 97.9 F 108 18 165/98 98 09/18/17 14:05 09/18/17 18:21 09/18/17 18:21 09/18/17 18:21 09/18/17 18:21 NPO (# of Hours): > 8 hrs Pain Scale: 0 Pain Scale Used: Numeric (1 - 10) - HEENT Pupil (Motor): Pupils equal, EOMI Mallampati: III (Easy Intubation 09/18/2017) Teeth: Poor dentition Oral Opening: Greater than 3 - SET AND EXHIBIT DESIGNER LOC: Oriented SET AND EXHIBIT DESIGNER Motor: Normal RUE, Normal LUE, Normal RLE, Normal LLE, Normal Face SET AND EXHIBIT DESIGNER Sensory: Normal: RUE, LUE, RLE, LLE, Face - Cardiac Rhythm: Regular Murmur: None JVD: No Carotid Bruit: No - Pulmonary Breath Sounds: bilateral Clear Respiratory Effort: Symmetrical Anesthesia Assess/Plan ASA Score: 2 Modified Silva Scale for Level of Consciousness: Cooperative, oriented, and tranquil Anesthetic Plan: General Autologous Blood: Yes Monitoring Plan: Standard Monitors Recovery Plan: PACU
--- NOTE | 2017-09-18 20:27 | Anesthesia Evaluation Post Op ---
Date of Encounter: 09/18/17 Time of Encounter: 20:27 - Vital Signs Vital Signs: Vital Signs/O2 Sat, Most Current Temp Pulse Resp BP Pulse Ox 98.5 F 86 16 148/86 99 09/18/17 20:05 09/18/17 20:25 09/18/17 20:25 09/18/17 20:25 09/18/17 20:25 - Lungs Lungs: Clear Ascult./Percussion - Airway Airway: Non-obstructed - Cardiovascular Regular Rate - Mental Status Mental Status: Alert & Oriented, Answers Appropriately - Pain Pain Scale: 0 Pain Scale used: Numeric (1 - 10) - Nausea Vomiting Nausea Vomiting: Not Present - Hydration Hydration: Tolerates oral liquids, Has not voided - Discharge PostOp Status: Transfer Patient to floor
[2017-09-18] MEDS: Famotidine 20 MG/2 ML VIAL IVP SCH (20:47)
[2017-09-19] MEDS: D5% in 0.45% NACL 1,000 ML IVC SCH ×2 (03:17→10:57)
[2017-09-19] MEDS: *HR* Heparin 5,000 UNIT/ML VIAL SQ SCH ×3 (05:33→22:48)
[2017-09-19] MEDS: Famotidine 20 MG/2 ML VIAL IVP SCH ×2 (05:34→17:02)
[2017-09-19] MEDS: Piperacillin/Tazobactam 3.375 GM in 0.9 % Sodium Chloride Mini Bag 100 ML IVPB SCH ×3 (07:41→15:22)
[2017-09-19 09:13] LABS: Alanine Aminotransferase 116 Units/L (7-52); Albumin 3.1 g/dL (3.5-5.7); Albumin/Globulin Ratio 0.8 (1.1-2.2); Alkaline Phosphatase 231 Units/L (34-104); Aspartate Amino Transferase 40 Units/L (13-39); BUN/Creatinine Ratio 9 (6-26); Bilirubin,Direct 6.2 mg/dL (0.0-0.2); Bilirubin,Indirect 3.1 mg/dL (0.0-1.2); Bilirubin,Total 9.3 mg/dL (0.3-1.0); Blood Urea Nitrogen 6 mg/dL (6-20); Calcium 8.8 mg/dL (8.6-10.3); Carbon Dioxide 24 mEq/L (23-29); Chloride 104 mEq/L (98-107); Globulin 3.8 g/dL (2.4-3.5); Glucose 115 mg/dL (70-105); Osmolality,Calculated 281 (280-300); Potassium 3.4 mEq/L (3.5-5.1); Sodium 136 mEq/L (136-145); Total Protein 6.9 g/dL (6.4-8.9); eGFR For African Americans > 60 (> 60); eGFR For Non-African Americans > 60 (> 60)
--- NOTE | 2017-09-19 09:21 | Internal Med Progress Note ---
Date of Encounter: 09/19/17 Time of Encounter: 09:10 - Assessment and plan (1) Abdominal pain Current Visit: Yes Status: Acute Assessment and plan: Due to cholelithiasis and choledocholithiasis. Abdominal pain has improved. No stone identified on ERCP but stent has been placed. Bilirubin remains elevated at 9.3. Surgery following. Patient was scheduled for laparoscopic cholecystectomy planned for later today. We will follow surgery recommendations. Qualifiers: Abdominal location: right upper quadrant Qualified Code(s): R10.11 - Right upper quadrant pain (2) Cholelithiases Current Visit: Yes Status: Acute Assessment and plan: Plan laparoscopic cholecystectomy. Status post ERCP and stent placement. Qualifiers: Cholelithiasis location: gallbladder and bile duct Cholecystitis presence: without cholecystitis Biliary obstruction: with biliary obstruction Qualified Code(s): K80.71 - Calculus of gallbladder and bile duct without cholecystitis with obstruction (3) Transaminitis Current Visit: Yes Status: Acute Assessment and plan: Trending down. Hepatitis panel ordered. Will follow results. (4) Choledocholithiasis Current Visit: Yes Status: Acute Assessment and plan: ERCP completed. Bilirubin remains elevated. Surgery following. (5) DVT prophylaxis Current Visit: Yes Status: Acute - Time Spent With Patient Total time spent is greater than 50% in coordination of care (as documented) at patient's floor/unit and/or counseling patient: - Subjective Interval history: Patient doing well this morning. Denies any abdominal pain. Awaiting surgery later today. - Constitutional Vitals: Temp Pulse Resp BP Pulse Ox 97.9 F 86 15 115/73 97 09/19/17 07:44 09/19/17 07:44 09/19/17 07:44 09/19/17 07:44 09/19/17 07:44 General appearance: Present: A&O X 3, morbidly obese, no acute distress, answers questions appropriately - Eye Eye exam: Present: scleral icterus - Neck Neck exam general surgery: Present: supple, trachea midline. Absent: lymphadenopathy - Respiratory Respiratory exam: Present: CTAB. Absent: accessory muscle use, rales, rhonchi, wheezes - Cardiovascular Cardiovascular exam: Present: RRR, +S1, +S2. Absent: diastolic murmur, gallop, rubs, systolic murmur - GI/Abdominal GI/Abdominal exam: Present: normal bowel sounds, soft, no peritoneal signs. Absent: distended, tenderness - Extremities Exam Extremities exam: Present: warm, radial pulses palpable and symmetrical. Absent : calf tenderness, cyanotic, pedal edema - Neurological Exam Neurological exam: Present: CN II-XII intact, oriented X3, no focal deficits. Absent: facial droop, speech deficit - Skin Skin exam: Present: dry, intact Additional comments: Jaundice Internal Medicine: Result - Labs CBC & Chem 7: 09/18/17 05:01 09/19/17 08:28 Labs: BMP 09/19/17 08:28 Sodium 136 Potassium 3.4 L Chloride 104 Carbon Dioxide 24 BUN 6 Creatinine 0.66 Glucose 115 H Calcium 8.8 Liver Function 09/19/17 Range/Units 08:28 Total Bilirubin 9.3 H (0.3-1.0) mg/dL Direct Bilirubin 6.2 H (0.0-0.2) mg/dL AST 40 H (13-39) Units/L ALT 116 H (7-52) Units/L Alkaline Phosphatase 231 H (34-104) Units/L Albumin 3.1 L (3.5-5.7) g/dL - ABG Interpretation ABG results: PT/INR, D-dimer PT 13.2 Seconds (9.4-12.1) H 09/16/17 04:50 - Impressions Impressions Cath/Invasive Procedure 09/18/17 00:00 IMPRESSION: Internal biliary stent placed with no residual intraductal calculi identified. D/ / River Ro / River Ro Interpreting Provider: River Ro Consult Discharge Plan - Plan Referrals: Cirilo Beavers DO [Primary Care Provider] - Geno Maxwell [employer] [Advanced Practice Nurse] - 10/02/17 3:30 pm
--- NOTE | 2017-09-19 09:40 | General Surgery Progress Note ---
<DavinlaurenhaliemariaNick - Last Filed: 09/19/17 09:35> Date of Encounter: 09/19/17 Time of Encounter: 07:00 - Assessment and Plan (1) Cholelithiases Current Visit: Yes Status: Acute Pt with obstructing gallstone in CBD. MRCP showed: "1. Cholelithiasis 2. Choledocholithiasis identified with at least a 5 mm stone within a notably dilated cystic duct. Cystic duct appears to have a low insertion upon the extrahepatic duct, and there is a 10 mm stone just distal to where the cystic duct joins to form the common bile duct. 3. Pancreatic duct does not appear dilated, and there is no obvious signal abnormality in that area. 4. Intrahepatic biliary tree also appears dilated." GI consulted for ERCP for removal of stone. ERCP showed: " Internal biliary stent placed with no residual intraductal calculi identified." Plan: continue Abx per primary team continue pain control continue IV fluids continue antiemetics. start regular diet daily CMP Will hold of on surgery until Bili begins to trend down. will need to work up continued rise of Bili. Qualifiers: Cholelithiasis location: gallbladder and bile duct Cholecystitis presence: without cholecystitis Biliary obstruction: with biliary obstruction Qualified Code(s): K80.71 - Calculus of gallbladder and bile duct without cholecystitis with obstruction (2) Abdominal pain Current Visit: Yes Status: Acute well controlled. see plan above. Qualifiers: Abdominal location: right upper quadrant Qualified Code(s): R10.11 - Right upper quadrant pain (3) Transaminitis Current Visit: Yes Status: Acute on admission: t. Bili 8.5 AST 149 ALT 413 Alk phos 287 yesterday: T. Bili 9.2 AST 46 ALT 169 Alk Phos 242 today: T BIli 9.3(6.2 direct, 3.1indirect) AST 40 ALT 116 Alk phos 231 AST, ALT, ALK Phos all trending down slowly Bili still rising. See plan above. Consider other causes of elevated LFTs besides gallstone such as liver disease(etoh, viral, genetic, autoimmune) Subjective Patient reports: no new complaints, feels better, voiding w/o difficulty, flatus , bowel movement, afebrile Narrative: Patient is comfortable. Patient had ERCP with stent palcement yesterday evening. No retained stone found. Patient's bilirubin is still rising. Will cancel surgery. Objective Vital Signs - Last 8 Hours Temp Pulse Resp BP Pulse Ox 09/19/17 07:44 97.9 F 86 15 115/73 97 09/19/17 03:16 98 F 86 15 117/78 97 Intake and Output 09/18/17 09/19/17 09/19/17 23:59 07:59 15:59 Intake Total 100 / 100 1100 / 1100 Output Total 1000 / 1000 Balance 100 / 100 100 / 100 Intake: IV Fluids 100 / 100 1100 / 1100 D5% And 0.45% Nacl 1000 Ml Bag 1000 / 1000 1,000 ML @ 100 mls/hr IVC .Q10H HECTOR Rx#:[id number] Zosyn 3.375 GM In 0.9 % Sodium 100 / 100 100 / 100 Chloride (Mini-Bag +) 100 ML @ 25 mls/hr IVPB Q8HR HECTOR Rx#: [id number] Oral 0 / 0 Output: Urine 1000 / 1000 Other: Meal NPO NPO Percent of Meal Consumed 0% Stool Size Small Stool Consistency formed Stool Color Brown # Voids 0 # Bowel Movements 0 Weight 130.209 kg Blood Glucose* 93 122 Patient Weight 09/19/17 23:59 Weight 130.209 kg - General physical appearance well developed, well nourished, no distress, obese - Eyes normal ocular movement - ENT normal nares, atraumatic, normocephalic - Neck Neck exam: trachea midline - Respiratory normal expansion, normal respiratory effort, clear to auscultation - Cardiovascular Cardiovascular exam: Present: RRR, no murmurs/rubs/gallops - Abdomen Abdomen: Present: bowel sounds present, soft, non tender - Integumentary no abnormal pigmentation - Neurologic CN 2-12 grossly intact - Musculoskeletal normal posture - Psychiatric oriented to time, oriented to person, oriented to place, speech is normal, memory intact - Labs 09/18/17 05:01 09/19/17 08:28 Diabetes panel 09/19/17 Range/Units 08:28 Sodium 136 (136-145) mEq/L Potassium 3.4 L (3.5-5.1) mEq/L Chloride 104 (98-107) mEq/L Carbon Dioxide 24 (23-29) mEq/L BUN 6 (6-20) mg/dL Creatinine 0.66 (0.60-1.20) mg/dL Glucose 115 H (70-105) mg/dL Calcium 8.8 (8.6-10.3) mg/dL AST 40 H (13-39) Units/L ALT 116 H (7-52) Units/L Alkaline Phosphatase 231 H (34-104) Units/L Albumin 3.1 L (3.5-5.7) g/dL Calcium panel 09/19/17 Range/Units 08:28 Calcium 8.8 (8.6-10.3) mg/dL Albumin 3.1 L (3.5-5.7) g/dL Pituitary panel 09/19/17 Range/Units 08:28 Sodium 136 (136-145) mEq/L Potassium 3.4 L (3.5-5.1) mEq/L Chloride 104 (98-107) mEq/L Carbon Dioxide 24 (23-29) mEq/L BUN 6 (6-20) mg/dL Creatinine 0.66 (0.60-1.20) mg/dL Glucose 115 H (70-105) mg/dL Calcium 8.8 (8.6-10.3) mg/dL Adrenal panel 09/19/17 Range/Units 08:28 Sodium 136 (136-145) mEq/L Potassium 3.4 L (3.5-5.1) mEq/L Chloride 104 (98-107) mEq/L Carbon Dioxide 24 (23-29) mEq/L BUN 6 (6-20) mg/dL Creatinine 0.66 (0.60-1.20) mg/dL Glucose 115 H (70-105) mg/dL Calcium 8.8 (8.6-10.3) mg/dL Total Bilirubin 9.3 H (0.3-1.0) mg/dL AST 40 H (13-39) Units/L ALT 116 H (7-52) Units/L Alkaline Phosphatase 231 H (34-104) Units/L Albumin 3.1 L (3.5-5.7) g/dL Consult Discharge Plan - Plan Referrals: Cirilo Beavers DO [Primary Care Provider] - Geno Maxwell CNP [Advanced Practice Nurse] - 10/02/17 3:30 pm <Enmanuel Thompson - Last Filed: 09/19/17 16:02> Date of Encounter: 09/19/17 Objective Vital Signs - Last 8 Hours Temp Pulse Resp BP Pulse Ox 09/19/17 14:33 97.8 F 91 14 110/76 97 09/19/17 10:21 98.0 F 98 16 133/86 97 Intake and Output 09/19/17 09/19/17 09/19/17 07:59 15:59 23:59 Intake Total 1100 / 1100 800 / 800 Output Total 1000 / 1000 500 / 500 Balance 100 / 100 300 / 300 Intake: IV Fluids 1100 / 1100 800 / 800 D5% And 0.45% Nacl 1000 Ml Bag 1000 / 1000 700 / 700 1,000 ML @ 100 mls/hr IVC .Q10H HECTOR Rx#:[id number] Zosyn 3.375 GM In 0.9 % Sodium 100 / 100 100 / 100 Chloride (Mini-Bag +) 100 ML @ 25 mls/hr IVPB Q8HR HECTOR Rx#: [id number] Oral 0 / 0 0 / 0 Output: Urine 1000 / 1000 500 / 500 Other: Meal NPO Lunch Percent of Meal Consumed 0% 25% Stool Size Small Stool Consistency formed Stool Color Brown # Voids 0 # Bowel Movements 0 Weight 130.209 kg Blood Glucose* 122 87 Patient Weight 09/19/17 23:59 Weight 130.209 kg - Labs 09/18/17 05:01 09/19/17 08:28 Diabetes panel 09/19/17 Range/Units 08:28 Sodium 136 (136-145) mEq/L Potassium 3.4 L (3.5-5.1) mEq/L Chloride 104 (98-107) mEq/L Carbon Dioxide 24 (23-29) mEq/L BUN 6 (6-20) mg/dL Creatinine 0.66 (0.60-1.20) mg/dL Glucose 115 H (70-105) mg/dL Calcium 8.8 (8.6-10.3) mg/dL AST 40 H (13-39) Units/L ALT 116 H (7-52) Units/L Alkaline Phosphatase 231 H (34-104) Units/L Albumin 3.1 L (3.5-5.7) g/dL Calcium panel 09/19/17 Range/Units 08:28 Calcium 8.8 (8.6-10.3) mg/dL Albumin 3.1 L (3.5-5.7) g/dL Pituitary panel 09/19/17 Range/Units 08:28 Sodium 136 (136-145) mEq/L Potassium 3.4 L (3.5-5.1) mEq/L Chloride 104 (98-107) mEq/L Carbon Dioxide 24 (23-29) mEq/L BUN 6 (6-20) mg/dL Creatinine 0.66 (0.60-1.20) mg/dL Glucose 115 H (70-105) mg/dL Calcium 8.8 (8.6-10.3) mg/dL Adrenal panel 09/19/17 Range/Units 08:28 Sodium 136 (136-145) mEq/L Potassium 3.4 L (3.5-5.1) mEq/L Chloride 104 (98-107) mEq/L Carbon Dioxide 24 (23-29) mEq/L BUN 6 (6-20) mg/dL Creatinine 0.66 (0.60-1.20) mg/dL Glucose 115 H (70-105) mg/dL Calcium 8.8 (8.6-10.3) mg/dL Total Bilirubin 9.3 H (0.3-1.0) mg/dL AST 40 H (13-39) Units/L ALT 116 H (7-52) Units/L Alkaline Phosphatase 231 H (34-104) Units/L Albumin 3.1 L (3.5-5.7) g/dL - Attending Attestation I examined this patient and my medical decision-making was reviewed with the Resident Physician. I agree with the documented findings, disposition and treatment plan as described except to the extent set forth below. The patient is seen and evaluated on morning rounds with resident. I am concerned that her bilirubin is still 9 despite ERCP and stent placement. It is noted that the booker did not visualize a stone in the distal common bile duct. We will cancel her surgery for today. I will not recommend proceeding with surgery until we have a full explanation for her jaundice and decrease of her bilirubin indicating that she would be able to tolerate general anesthetic and normal coagulation. Enmanuel Thompson MD FACS
[2017-09-19 09:59] LABS: Amylase 219 Units/L (29-103); Lipase 999 Units/L (11-82)
[2017-09-19] MEDS ORDERED: cefOXitin 1,000 MG, 0.9 % Sodium Chloride 1,000 ML IR ONE (17:30)
[2017-09-20] MEDS: Piperacillin/Tazobactam 3.375 GM in 0.9 % Sodium Chloride Mini Bag 100 ML IVPB SCH ×2 (00:58→07:32)
[2017-09-20 01:27] LABS: Hepatitis A Antibody IgM Nonreactive (Nonreactive); Hepatitis B Core IgM Nonreactive (Nonreactive); Hepatitis B Surface Antigen Nonreactive (Nonreactive); Hepatitis C Virus Antibody Nonreactive (Nonreactive)
[2017-09-20 03:39] LABS: Basophils % 0.3 %; Eosinophils % 0.5 %; Hematocrit 35.5 % (35.3-44.9); Hemoglobin 12.3 g/dL (11.5-15.4); Immature Granulocytes % 0.3 % (0-4); Lymphocytes # 2.6 K/mcL (0.6-4.6); Lymphocytes % 34.8 %; Mean Corpuscular HGB Conc 34.6 g/dL (31.6-35.5); Mean Corpuscular Hemoglobin 29.1 pg (28.0-33.3); Mean Corpuscular Volume 84.1 fL (83.0-100.0); Mean Platelet Volume 9.3 fL (9.4-12.4); Monocytes # 0.5 K/mcL (0.0-1.3); Monocytes % 6.6 %; Neutrophils # 4.3 K/mcL (1.6-8.9); Platelet Count 287 K/mcL (140-400); Red Blood Count 4.22 M/mcL (3.82-4.97); Red Cell Distribution Width 16.1 % (11.5-14.5); Segmented Neutrophils % 57.5 %
[2017-09-20 03:57] LABS: Alanine Aminotransferase 91 Units/L (7-52); Albumin/Globulin Ratio 0.9 (1.1-2.2); Alkaline Phosphatase 215 Units/L (34-104); Aspartate Amino Transferase 39 Units/L (13-39); BUN/Creatinine Ratio 14 (6-26); Blood Urea Nitrogen 10 mg/dL (6-20); Calcium 8.5 mg/dL (8.6-10.3); Carbon Dioxide 22 mEq/L (23-29); Chloride 107 mEq/L (98-107); Globulin 3.5 g/dL (2.4-3.5); Glucose 85 mg/dL (70-105); Osmolality,Calculated 288 (280-300); Potassium 3.4 mEq/L (3.5-5.1); Sodium 140 mEq/L (136-145); Total Protein 6.5 g/dL (6.4-8.9); eGFR For African Americans > 60 (> 60); eGFR For Non-African Americans > 60 (> 60)
[2017-09-20] MEDS: *HR* Heparin 5,000 UNIT/ML VIAL SQ SCH (04:39)
[2017-09-20] MEDS: Famotidine 20 MG/2 ML VIAL IVP SCH (05:02)
--- NOTE | 2017-09-20 10:09 | General Surgery Progress Note ---
<Nick Goodwin - Last Filed: 09/20/17 10:02> Date of Encounter: 09/20/17 Time of Encounter: 06:15 - Assessment and Plan (1) Cholelithiases Status: Acute Pt with obstructing gallstone in CBD. MRCP showed: "1. Cholelithiasis 2. Choledocholithiasis identified with at least a 5 mm stone within a notably dilated cystic duct. Cystic duct appears to have a low insertion upon the extrahepatic duct, and there is a 10 mm stone just distal to where the cystic duct joins to form the common bile duct. 3. Pancreatic duct does not appear dilated, and there is no obvious signal abnormality in that area. 4. Intrahepatic biliary tree also appears dilated." GI consulted for ERCP for removal of stone. Patient had ERCP on 09/18. Endoscopy report not available till after yesterday's note was written. Cath/invasive procedure note written in such a way that it was interpreted by me as sayign they had not found a stone on ERCP it actually was indicating that after ERCP there weere no more residual stones. They did in fact remove multiple stones and place a stent. Patient is in moderate distress crying about having to wait longer for surgery due to her elevated bilirubin. We explained the risks of going to surgery with that number so high. Patient requesting to be able to be discharged and wait at home and have surgery scheduled as an out patient. We will work to facilitate this. Patient can be discharged home to follow up out patient from a surgery perspective. Qualifiers: Cholelithiasis location: gallbladder and bile duct Cholecystitis presence: without cholecystitis Biliary obstruction: with biliary obstruction Qualified Code(s): K80.71 - Calculus of gallbladder and bile duct without cholecystitis with obstruction (2) Abdominal pain Status: Acute well controlled. see plan above. Qualifiers: Abdominal location: right upper quadrant Qualified Code(s): R10.11 - Right upper quadrant pain (3) Transaminitis Status: Acute on admission: t. Bili 8.5 AST 149 ALT 413 Alk phos 287 09/18: T. Bili 9.2 AST 46 ALT 169 Alk Phos 242 09/19: T BIli 9.3(6.2 direct, 3.1indirect) AST 40 ALT 116 Alk phos 231 09/20: T bili 8.0 AST 39 ALT 91 Alk phos 215 AST, ALT, ALK Phos all trending down Bili now trending down as well. See plan above. No need for further work up as ERCP note indicated patient did have multiple obstructing gallstones. Subjective Patient reports: tolerating a regular diet, voiding w/o difficulty, afebrile Narrative: Patient is distressed about having to wait around for surgery. Patient had ERCP on 09/18. Endoscopy report not available till after yesterday's note was written. Cath/invasive procedure note written in such a way that it was interpreted by me as sayign they had not found a stone on ERCP it actually was indicating that after ERCP there weere no more residual stones. They did in fact remove multiple stones and place a stent. Patient is in moderate distress crying about having to wait longer for surgery due to her elevated bilirubin. We explained the risks of going to surgery with that number so high. Patient requesting to be able to be discharged and wait at home and have surgery scheduled as an out patient. We will work to facilitate this. Patient can be discharged home to follow up out patient from a surgery perspective. Objective Vital Signs - Last 8 Hours Temp Pulse Resp BP Pulse Ox 09/20/17 06:58 97.8 F 83 16 124/77 98 09/20/17 03:43 98.1 F 83 14 117/79 98 Intake and Output 09/19/17 09/20/17 09/20/17 23:59 07:59 15:59 Intake Total 220 / 220 340 / 340 240 / 240 Output Total 0 / 0 400 / 400 Balance 220 / 220 -60 / -60 240 / 240 Intake: IV Fluids 100 / 100 100 / 100 Zosyn 3.375 GM In 0.9 % Sodium 100 / 100 100 / 100 Chloride (Mini-Bag +) 100 ML @ 25 mls/hr IVPB Q8HR HECTOR Rx#: [id number] Oral 120 / 120 240 / 240 240 / 240 Output: Urine 0 / 0 400 / 400 Other: Meal Dinner Breakfast Percent of Meal Consumed 5% 50% # Bowel Movements 0 Weight 127.233 kg Patient Weight 09/20/17 23:59 Weight 127.233 kg - General physical appearance well developed, well nourished, moderate distress, obese - Eyes normal ocular movement - ENT normal mucosa - Neck Neck exam: trachea midline - Respiratory normal expansion, normal respiratory effort, clear to auscultation - Cardiovascular Cardiovascular exam: Present: RRR, no murmurs/rubs/gallops - Abdomen Abdomen: Present: bowel sounds present, soft, non tender - Integumentary no growths - Neurologic CN 2-12 grossly intact - Musculoskeletal normal posture - Psychiatric oriented to time, oriented to person, oriented to place, speech is normal, memory intact - Labs 09/20/17 03:19 09/20/17 03:19 Diabetes panel 09/20/17 Range/Units 03:19 Sodium 140 (136-145) mEq/L Potassium 3.4 L (3.5-5.1) mEq/L Chloride 107 (98-107) mEq/L Carbon Dioxide 22 L (23-29) mEq/L BUN 10 (6-20) mg/dL Creatinine 0.72 (0.60-1.20) mg/dL Glucose 85 (70-105) mg/dL Calcium 8.5 L (8.6-10.3) mg/dL AST 39 (13-39) Units/L ALT 91 H (7-52) Units/L Alkaline Phosphatase 215 H (34-104) Units/L Albumin 3.0 L (3.5-5.7) g/dL Calcium panel 09/20/17 Range/Units 03:19 Calcium 8.5 L (8.6-10.3) mg/dL Albumin 3.0 L (3.5-5.7) g/dL Pituitary panel 09/20/17 Range/Units 03:19 Sodium 140 (136-145) mEq/L Potassium 3.4 L (3.5-5.1) mEq/L Chloride 107 (98-107) mEq/L Carbon Dioxide 22 L (23-29) mEq/L BUN 10 (6-20) mg/dL Creatinine 0.72 (0.60-1.20) mg/dL Glucose 85 (70-105) mg/dL Calcium 8.5 L (8.6-10.3) mg/dL Adrenal panel 09/20/17 Range/Units 03:19 Sodium 140 (136-145) mEq/L Potassium 3.4 L (3.5-5.1) mEq/L Chloride 107 (98-107) mEq/L Carbon Dioxide 22 L (23-29) mEq/L BUN 10 (6-20) mg/dL Creatinine 0.72 (0.60-1.20) mg/dL Glucose 85 (70-105) mg/dL Calcium 8.5 L (8.6-10.3) mg/dL Total Bilirubin 8.0 H (0.3-1.0) mg/dL AST 39 (13-39) Units/L ALT 91 H (7-52) Units/L Alkaline Phosphatase 215 H (34-104) Units/L Albumin 3.0 L (3.5-5.7) g/dL Consult Discharge Plan - Plan Instructions: Acute Abdominal Pain (DC) Referrals: Geno Maxwell CNP [Advanced Practice Nurse] - 10/05/17 10:00 am Itzel Stockton MD [Partnered Physician] - (in 4 weeks WEB REQUEST ENTERED. OFFICE WILL CALL WITH APPOINTMENT.) Prescriptions: Amoxicillin/Clavulanate [Augmentin] 875 mg PO BIDWM #14 tablet Lactobacillus Acidophilus [Acidophilus] 1 each PO BID #14 capsule <Enmanuel Thompson - Last Filed: 09/21/17 10:56> Date of Encounter: 09/20/17 Objective - Labs 09/20/17 03:19 09/20/17 03:19 - Attending Attestation I examined this patient and my medical decision-making was reviewed with the Resident Physician. I agree with the documented findings, disposition and treatment plan as described except to the extent set forth below. The patient is seen and evaluated on morning rounds. The original endoscopy note was or whether this. The corrected endoscopy note noted multiple common bile duct stones that were removed and a stent was placed. She obviously had choledocholithiasis as the source of her jaundice. Unfortunately her bilirubin has not dropped significantly. I have recommended that her liver function tests and bilirubin need to normalize prior to surgery. I will see her next week in the office to schedule outpatient cholecystectomy to allow her liver function to recover. Enmanuel Thompson MD FACS
[2017-09-20 10:32] VITALS: BP 121/79
--- NOTE | 2017-09-20 11:20 | Discharge Summary ---
- NOTES TO OUTPATIENT PROVIDER Notes to Outpatient Provider: Patient admitted with right upper quadrant abdominal pain related to choledocholithiasis, obstructive jaundice and cholelithiasis. She was evaluated by surgery and GI and recommended ERCP. She underwent the procedure and her bilirubin is still elevated at 8. Patient wishes to go home and from a surgical standpoint she is stable to be discharged. She will be scheduled for outpatient laparoscopic cholecystectomy. Orders not resulted at time of discharge: Pending orders 09/16/17 04:56 Culture,Blood [BC] Stat Date of Encounter: 09/20/17 Time of Encounter: 11:16 - Discharge Diagnosis (1) Abdominal pain Priority: Primary Status: Acute Qualifiers: Abdominal location: right upper quadrant Qualified Code(s): R10.11 - Right upper quadrant pain (2) Obstructive jaundice Priority: Secondary Status: Acute (3) Cholelithiases Priority: Secondary Status: Acute Qualifiers: Cholelithiasis location: gallbladder and bile duct Cholecystitis presence: without cholecystitis Biliary obstruction: with biliary obstruction Qualified Code(s): K80.71 - Calculus of gallbladder and bile duct without cholecystitis with obstruction (4) Transaminitis Priority: Secondary Status: Acute (5) Choledocholithiasis Priority: Secondary Status: Acute (6) DVT prophylaxis Priority: Secondary Status: Acute Hospital course: Ms. Garcia is a 32 year old female patient who was hospitalized here with obstructive jaundice and abdominal pain. She was found to have cholelithiasis and choledocholithiasis. Surgery and gastroenterology were consulted. Patient was kept nothing by mouth. Treated with IV antibiotics and fluids. She underwent ERCP and biliary stent placement. Since then her bilirubin levels have slowly started to come down. She was evaluated by surgery and recommended laparoscopic cholecystectomy. However as her bilirubin is still 8, they recommend waiting until her bilirubin is at least less than 4. Patient however does not wish to stay in the hospital that long. After discussing with surgery , she has been deemed appropriate for discharge at this time and will have outpatient laparoscopic cholecystectomy next week. She is tolerating diet well. She will also have her biliary stent removed in 6 weeks. She will follow up with GI as outpatient. Discharge discussed with: patient, nurse, animal nutrition consultant - Time Spent with Patient Total time spent providing and/or coordinating discharge services: Greater than 30 minutes (32 min) - Discharge Medications Prescriptions: Amoxicillin/Clavulanate [Augmentin] 875 mg PO BIDWM #14 tablet Lactobacillus Acidophilus [Acidophilus] 1 each PO BID #14 capsule Home Medications: Gabapentin [Neurontin] 600 mg PO BID 09/16/17 [History] Norethindrone-Ethinyl Estrad [Nortrel 7-7-7-28 Tablet] 1 tab PO DAILY 09/16/17 [ History] Ranitidine HCl [Zantac] 300 mg PO BID 09/16/17 [History] Amoxicillin/Clavulanate [Augmentin] 875 mg PO BIDWM #14 tablet 09/20/17 [Rx] Lactobacillus Acidophilus [Acidophilus] 1 each PO BID #14 capsule 09/20/17 [Rx] Allergies/Adverse Reactions: 3 Allergy/AdvReac Type Severity Reaction Status Date / Time latex Allergy Mild Redness of Verified 09/16/17 10:31 Skin Date of admission: 09/19/17 14:47 Primary care physician: Cirilo Beavers Consults: 09/16/17 03:53 Consult to Surgery [CONS] Routine Consulting Provider: Surgery [facility] Reason for Consult: gallstones/CBD dilation Call Completed: Yes 09/16/17 15:57 Consult to Gastroenterology [CONS] Routine Consulting Provider: Gastroenterology Sh[facility]ene Reason for Consult: ERCP for Choledocholithiasis Call Completed: No Discharging clinician: Saba Rashid Anticipated date of discharge: 09/20/17 - Constitutional Vitals: Temp Pulse Resp BP Pulse Ox 97.7 F 91 16 121/79 97 09/20/17 10:24 09/20/17 10:24 09/20/17 10:24 09/20/17 10:24 09/20/17 10:24 General appearance: Present: A&O X 3, morbidly obese, no acute distress, answers questions appropriately - Neck Neck exam general surgery: Present: supple, trachea midline. Absent: lymphadenopathy - Respiratory Respiratory exam: Present: CTAB. Absent: accessory muscle use, rales, rhonchi, wheezes - Cardiovascular Cardiovascular exam: Present: RRR, +S1, +S2. Absent: diastolic murmur, gallop, rubs, systolic murmur - GI/Abdominal GI/Abdominal exam: Present: normal bowel sounds, soft, no peritoneal signs. Absent: distended, tenderness - Patient Status Disposition: Home, Self-Care Condition: Good Functional capacity at discharge: independent ambulation Overall status at discharge: patient is progressing back to baseline - Ambulatory Orders Ambulatory Orders: Hepatic Panel [CHEM] Time Frame: 5 Days, Facility: [facility] [place] , Location: Lab - Discharge Instructions Instructions: Acute Abdominal Pain (DC) Follow Up With: Geno Maxwell CNP [Advanced Practice Nurse] - 10/05/17 10:00 am Itzel Stockton MD [Partnered Physician] - (in 4 weeks) - Diet and Activity Activity: increase activity as tolerated Diet: low fat, low cholesterol, low salt diet
--- NOTE | 2017-09-20 11:38 | Gastroenterology Progress Note ---
<Noah Paniagua - Last Filed: 09/20/17 11:36> Date of Encounter: 09/20/17 Time of Encounter: 10:20 - Assessment and plan (1) Choledocholithiasis Current Visit: Yes Status: Acute Assessment and plan: ERCP showed choledocholithiasis, common bile duct was successfully dilated and biliary tree swept, 4 stones were removed, one temporary stent placed in the CBD and PD. Remove stents in 6 weeks. Have patient follow up as outpatient with Dr. Stockton in 4 weeks. (2) Jaundice Current Visit: Yes Status: Acute Assessment and plan: Secondary to choledocholithiasis. On admission TB 8.5 and today TB 8 following ERCP with stent placement. Bili is decreasing slowly, will continue to monitor. Follow up with Dr. Stockton in GI office in 4 weeks. Check AMA and KAVYA prior to discharge. (3) Cholelithiases Current Visit: Yes Status: Acute Assessment and plan: Management per General Surgery. Plan for cholecystectomy as outpatient. Qualifiers: Cholelithiasis location: gallbladder and bile duct Cholecystitis presence: without cholecystitis Biliary obstruction: with biliary obstruction Qualified Code(s): K80.71 - Calculus of gallbladder and bile duct without cholecystitis with obstruction - Time Spent With Patient Total time spent is greater than 50% in coordination of care (as documented) at patient's floor/unit and/or counseling patient: - Subjective Interval history: Pt is resting in bed and is feeling well. She is without acute complaint at this time. - Constitutional Vitals: Temp Pulse Resp BP Pulse Ox 97.7 F 91 16 121/79 97 09/20/17 10:24 09/20/17 10:24 09/20/17 10:24 09/20/17 10:24 09/20/17 10:24 General appearance: Present: cooperative, A&O X 3, no acute distress, answers questions appropriately - Head Head exam: Present: atraumatic, normocephalic - Eye Eye exam: Present: normal appearance, sclera anicteric - ENT ENT exam: Present: mucous membranes moist - Neck Neck exam general surgery: Present: normal inspection, trachea midline - Respiratory Respiratory exam: Present: CTAB. Absent: rales, rhonchi - Cardiovascular Cardiovascular exam: Present: RRR, +S1, +S2 - GI/Abdominal GI/Abdominal exam: Present: soft, no peritoneal signs. Absent: distended, firm , guarding, tenderness - Rectal Rectal exam: Present: deferred - Extremities Exam Extremities exam: Present: warm - Neurological Exam Neurological exam: Present: no focal deficits - Psychiatric Psychiatric exam: Present: normal affect, normal mood - Skin Skin exam: Present: dry, intact, normal color, warm Results - Labs CBC & Chem 7: 09/20/17 03:19 09/20/17 03:19 Labs: Last Result Calcium 8.5 mg/dL (8.6-10.3) L 09/20/17 03:19 Entire Visit Hgb 12.3 g/dL (11.5-15.4) 09/20/17 03:19 Hct 35.5 % (35.3-44.9) 09/20/17 03:19 PT 13.2 Seconds (9.4-12.1) H 09/16/17 04:50 Total Bilirubin 8.0 mg/dL (0.3-1.0) H 09/20/17 03:19 AST 39 Units/L (13-39) 09/20/17 03:19 ALT 91 Units/L (7-52) H 09/20/17 03:19 Amylase 219 Units/L (29-103) H 09/19/17 08:28 Lipase 999 Units/L (11-82) H 09/19/17 08:28 - ABG ABG results: PT/INR, D-dimer PT 13.2 Seconds (9.4-12.1) H 09/16/17 04:50 Consult Discharge Plan - Plan Instructions: Acute Abdominal Pain (DC) Referrals: Geno Maxwell REC THERAPIST [Advanced Practice Nurse] - 10/05/17 10:00 am Prescriptions: Amoxicillin/Clavulanate [Augmentin] 875 mg PO BIDWM #14 tablet Lactobacillus Acidophilus [Acidophilus] 1 each PO BID #14 capsule <Itzel Stockton - Last Filed: 09/20/17 12:33> Date of Encounter: 09/20/17 - Time Spent With Patient Total time spent is greater than 50% in coordination of care (as documented) at patient's floor/unit and/or counseling patient: - Constitutional Vitals: Temp Pulse Resp BP Pulse Ox 97.7 F 91 16 121/79 97 09/20/17 10:24 09/20/17 10:24 09/20/17 10:24 09/20/17 10:24 09/20/17 10:24 Results - Labs CBC & Chem 7: 09/20/17 03:19 09/20/17 03:19 Labs: Last Result Calcium 8.5 mg/dL (8.6-10.3) L 09/20/17 03:19 Entire Visit Hgb 12.3 g/dL (11.5-15.4) 09/20/17 03:19 Hct 35.5 % (35.3-44.9) 09/20/17 03:19 PT 13.2 Seconds (9.4-12.1) H 09/16/17 04:50 Total Bilirubin 8.0 mg/dL (0.3-1.0) H 09/20/17 03:19 AST 39 Units/L (13-39) 09/20/17 03:19 ALT 91 Units/L (7-52) H 09/20/17 03:19 Amylase 219 Units/L (29-103) H 09/19/17 08:28 Lipase 999 Units/L (11-82) H 09/19/17 08:28 - ABG ABG results: PT/INR, D-dimer PT 13.2 Seconds (9.4-12.1) H 09/16/17 04:50 - Attending Attestation I have personally performed a face to face evaluation on this patient. I have reviewed and agree with the care plan. History and Exam by me shows: Patient seen no abdominal pain. Still has jaundice on exam. Assessment: Patient with the jaundice due to choledocholithiasis after ERCP with stent placement LFTs are slowly improving. hepatitis Profile is negative. patient was only symptomatic for 4 days prior to hospitalization with symptoms of abdominal pain. Recommendation: GB surgery as per Dr. Thompson will check a KAVYA and AMA just to make sure there is no other reason for her elevated LFTs which are improving slowly
[2017-09-22 15:12] LABS: ANA IgG by ELISA NONE DETECTED (None Detected)
== END 2017-09-20 14:26 | disposition home or self-care (01) | DRG 445 ==
LOC: 3ANU → SUATTDRO 03:02
PROVIDERS: ADMIT Internal Medicine; ATTEND Internal Medicine